=== PATIENT | female | born 1990 | race Caucasian/White ===

== ENCOUNTER → 2016-05-07 | Outpatient (CLI) | payer MEDICAID ==
[~2016-05-07] MED LIST: ACHD5005 PO; ALPR0.5T7 PO; AMOX500C2 PO; BSP10T PO; CATHETER FLUSH 10 ML SYR IV PRN; CYCL10TA9 PO; DCS100C PO; DEXT30TA12; DOCU100C37 PO; FAMO-119 PO; HYDR-3720 PO; HYDR-3816 PO; IBP800T PO; IBUP-1780 PO; IOHEXOL 350 MG/ML 100 ML (OMNIPAQUE 350) VIAL IV ONE; MAGN296S PO; NAPR-243 PO; NITR-65 PO; NS 100 ML (IVPB) BAG IV ONE; ONDA8TAB9 PO; OXYC-202 PO; OXYC-465 PO; POLY119P PO; PRD20T PO; PRED20TA PO; PREN1TAB19 PO; TRM50T PO; blue goo TOP
--- OUTSIDE RECORDS SUMMARY | 2016-05-07 12:06 | XMS REPORT | Continuity of Care Document ---
Author Author [facility] Organization [facility] Address Unknown Phone Unavailable Care Team Providers Care Chef Instructor Name Role Phone JEANETTE GARCIA MD PCP Insurance Providers Payer Name Policy Number Subscriber Name Relationship [employer] [facility] Emp [id number] Clau Farmer 18 Self / Same As Patient [facility] [id number] Clau Farmer 18 Self / Same As Patient Advance Directives Directive Response Recorded Date/Time Advance Directives No 07/25/14 3:42pm Health Care Power of Sales Outfitter No 07/25/14 3:42pm Organ Donor Yes 07/25/14 3:42pm Resuscitation Status Full Code 07/25/14 3:42pm Problems Medical Problems Problem Onset Date Status Dental abscess Unknown Active fractured tooth Unknown Active Chronic low back pain Unknown Active Abdominal pain Unknown Active Constipation Unknown Active Chronic low back pain Unknown Active Medications Medication Dose Route Sig Days/Qty Instructions Order Date Discontinued Date Status Buspirone HCl 1 Tab PO DAILY 90 Qty 11/24/12 03/17/13 Discontinued Tramadol HCl 50 Mg PO EVERY 4HRS 10 Qty 11/24/12 03/17/13 Discontinued Vit/Fe Fumarate/Fa 1 Each PO DAILY 03/17/13 Active Acetaminophen/Hydrocodone Bitart 1 Each PO EVERY 4HRS PRN PAIN 20 Qty 03/17/13 05/13/13 Discontinued Amoxicillin 2 Each PO THREE TIMES A DAY 10 Days 03/17/13 05/10/13 Discontinued Ondansetron HCl 8 Mg PO EVERY 6 HOURS PRN NAUSEA/VOMITING 10 Qty 05/10/13 Discontinued Docusate Sodium 1 Cap PO DAILY PRN CONSTIPATION 60 Qty 05/13/13 Active Acetaminophen/Hydrocodone Bitart ([place]) 1-2 Tab PO Q3H PRN PAIN 60 Qty 05/13/13 Active Ibuprofen 1 Tab PO EVERY 6 HOURS PRN cramps 60 Qty 05/13/13 Active Polyethylene Glycol 17 Gm PO BEDTIME 1 Qty 07/25/14 Active Magnesium Citrate 296 Ml PO ONCE 1 Qty 07/25/14 Active Naproxen 1 Each PO BID PRN PRN PAIN 20 Qty 07/25/14 Active Cyclobenzaprine HCl (Flexeril) 1 Each PO EVERY 8HRS PRN SPASMS 6 Qty Active Prednisone 40 Mg PO DAILY 10 Qty 07/25/14 Active Social History Social History Problem Response Recorded Date/Time Alcohol Use Rarely Uses 07/25/2014 3:42pm Recreational Drug Use No 07/25/2014 3:42pm Recent Foreign Travel No 07/25/2014 3:35pm Recent Infectious Disease Exposure No 07/25/2014 3:35pm Sexually Transmitted Disease No 07/25/2014 3:42pm Smoking Status Never a Smoker 07/25/2014 3:42pm Query Response Start Date Stop Date Smoking Status Never a Smoker Hospital Discharge Instructions No hospital discharge instructions. Plan of Care No plan of care. Functional Status No functional status results. Allergies, Adverse Reactions, Alerts Allergen Type Severity Reaction Status Last Updated No Known Drug Allergies Active 09/19/11 Immunizations Name Given Type Date of Influenza Vaccine 01/12/14 Historical Tetanus Booster (TDap) More than 5yrs Historical Vital Signs Acute Vital Signs Vital Response Date/Time Temperature (Fahrenheit) 97.2 degrees F (97.6 - 99.5) Temperature (Calculated Celsius) 36.00242 degrees C (36.4 - 37.5) Temperature Source Temporal Pulse Rate (adult) 89 bpm (60 - 90) Respiratory Rate 20 bpm (12 - 24) O2 Sat by Pulse Oximetry 98 % (88 - 100) Blood Pressure 134/88 mm Hg Pain Pain Intensity 6 Pain Pain Intensity 6 Height (Feet) 5 feet Height (Inches) 0.00 inches Height (Calculated Centimeters) 152.178847 cm Weight (Pounds) 110 pounds Weight (Ounces) 0.0 oz Weight (Calculated Grams) 69870.149 gm Weight (Calculated Kilograms) 49.771850 kilograms Calculated BMI 21.09 Results Laboratory Results Test Name Result Units Flags Reference Collection Date/Time Result Date/ Time Comments White Blood Count 10.2 10^3/uL 4.3-11.0 07/25/2014 4:40pm 07/25/2014 4: 52pm Red Blood Count 5.18 10^6/uL 4.35-5.85 07/25/2014 4:40pm 07/25/2014 4: 52pm Hemoglobin 14.4 G/DL 11.5-16.0 07/25/2014 4:40pm 07/25/2014 4:52pm Hematocrit 43 % 35-52 07/25/2014 4:40pm 07/25/2014 4:52pm Mean Corpuscular Volume 84 FL 80-99 07/25/2014 4:40pm 07/25/2014 4: 52pm Mean Corpuscular Hemoglobin 28 PG 25-34 07/25/2014 4:40pm 07/25/2014 4: 52pm Mean Corpuscular Hemoglobin Concent 33 G/DL 32-36 07/25/2014 4:40pm 4:52pm Red Cell Distribution Width 13.5 % 10.0-14.5 07/25/2014 4:40pm 2014 4:52pm Platelet Count 279 10^3/uL 130-400 07/25/2014 4:40pm 07/25/2014 4:52pm Mean Platelet Volume 9.5 FL 7.4-10.4 07/25/2014 4:40pm 07/25/2014 4: 52pm Neutrophils (%) (Auto) 68 % 42-75 07/25/2014 4:40pm 07/25/2014 4:52pm Lymphocytes (%) (Auto) 24 % 12-44 07/25/2014 4:40pm 07/25/2014 4:52pm Monocytes (%) (Auto) 5 % 0-12 07/25/2014 4:40pm 07/25/2014 4:52pm Eosinophils (%) (Auto) 3 % 0-10 07/25/2014 4:40pm 07/25/2014 4:52pm Basophils (%) (Auto) 0 % 0-10 07/25/2014 4:40pm 07/25/2014 4:52pm Neutrophils # (Auto) 6.9 X 10^3 1.8-7.8 07/25/2014 4:40pm 07/25/2014 4: 52pm Lymphocytes # (Auto) 2.4 X 10^3 1.0-4.0 07/25/2014 4:40pm 07/25/2014 4: 52pm Monocytes # (Auto) 0.6 X 10^3 0.0-1.0 07/25/2014 4:40pm 07/25/2014 4: 52pm Eosinophils # (Auto) 0.3 10^3/uL 0.0-0.3 07/25/2014 4:40pm 07/25/2014 4 :52pm Basophils # (Auto) 0.0 10^3/uL 0.0-0.1 07/25/2014 4:40pm 07/25/2014 4: 52pm Prothrombin Time 12.2 SEC 12.2-14.7 07/25/2014 4:40pm 07/25/2014 5: 04pm INR Comment 0.9 0.8-1.4 07/25/2014 4:40pm 07/25/2014 5:04pm INTERPRETIVE DATA SUGGESTED THERAPEUTIC RANGE FOR INR'S: VENOUS THROMBOSIS, PULMONARY EMBOLISM, OR PREVENTION OF SYSTEMIC EMBOLISM (EG. IN ATRIAL FIBRILLATION): 2.0 - 3.0 MECHANICAL PROSTHETIC HEART VALVES: 2.5 - 3.5* *NOTE: INR'S UP TO 4.5 MAY BE NECESSARY IN SELECTED GROUPS OF HIGH RISK PATIENTS. SIXTH [place] COLLEGE OF CHEST PHYSICIANS CONSENSUS CONFERENCE ON ANTITHROMBOTIC THERAPY (2000). Activated Partial Thromboplast Time 25 SEC 24-35 07/25/2014 4:40pm 5:04pm Urine Color YELLOW 07/25/2014 4:18pm 07/25/2014 4:41pm Urine Clarity CLEAR 07/25/2014 4:18pm 07/25/2014 4:41pm Urine pH 7 5-9 07/25/2014 4:18pm 07/25/2014 4:41pm Urine Specific [place] 1.010 * 1.016-1.022 07/25/2014 4:18pm 2014 4:41pm Urine Protein NEGATIVE NEGATIVE 07/25/2014 4:18pm 07/25/2014 4:41pm Urine Glucose (UA) NEGATIVE NEGATIVE 07/25/2014 4:18pm 07/25/2014 4: 41pm Urine RBC (Auto) NEGATIVE NEGATIVE 07/25/2014 4:18pm 07/25/2014 4: 41pm Urine Ketones NEGATIVE NEGATIVE 07/25/2014 4:18pm 07/25/2014 4:41pm Urine Nitrite NEGATIVE NEGATIVE 07/25/2014 4:18pm 07/25/2014 4:41pm Urine Bilirubin NEGATIVE NEGATIVE 07/25/2014 4:18pm 07/25/2014 4: 41pm Urine Urobilinogen NORMAL MG/DL NORMAL 07/25/2014 4:18pm 07/25/2014 4: 41pm Urine Leukocyte Esterase NEGATIVE NEGATIVE 07/25/2014 4:18pm 2014 4:41pm Urine RBC 0-2 /HPF 07/25/2014 4:18pm 07/25/2014 4:41pm Urine WBC RARE /HPF 07/25/2014 4:18pm 07/25/2014 4:41pm Urine Bacteria NEGATIVE /HPF 07/25/2014 4:18pm 07/25/2014 4:41pm Urine Squamous Epithelial Cells 0-2 /HPF 07/25/2014 4:18pm 2014 4:41pm Urine Crystals NONE /LPF 07/25/2014 4:18pm 07/25/2014 4:41pm Urine Casts NONE /LPF 07/25/2014 4:18pm 07/25/2014 4:41pm Urine Mucus NEGATIVE /LPF 07/25/2014 4:18pm 07/25/2014 4:41pm Urine Culture Indicated NO 07/25/2014 4:18pm 07/25/2014 4:41pm Sodium Level 140 MMOL/L 135-145 07/25/2014 4:40pm 07/25/2014 5:20pm Potassium Level 4.1 MMOL/L 3.6-5.0 07/25/2014 4:40pm 07/25/2014 5:20pm Chloride Level 106 MMOL/L 98-107 07/25/2014 4:40pm 07/25/2014 5:20pm Carbon Dioxide Level 25 MMOL/L 21-32 07/25/2014 4:40pm 07/25/2014 5: 20pm Blood Urea Nitrogen 10 MG/DL 7-18 07/25/2014 4:40pm 07/25/2014 5:20pm Creatinine 0.74 MG/DL 0.60-1.30 07/25/2014 4:40pm 07/25/2014 5:20pm BUN/Creatinine Ratio 14 07/25/2014 4:40pm 07/25/2014 5:20pm Estimat Glomerular Filtration Rate > 60 07/25/2014 4:40pm 2014 5:20pm GFR INTERPRETIVE DATA UNITS FOR ESTIMATED GFR (eGFR): mL/min/1.73 M2 REFERENCE RANGE FOR ESTIMATED GFR (eGFR) eGFR NORMAL eGFR >60 MODERATELY DECREASED eGFR 30-59 SEVERLY DECREASED eGFR 15-29 KIDNEY FAILURE <15 (OR DIALYSIS) Glucose Level 87 MG/DL 70-105 07/25/2014 4:40pm 07/25/2014 5:20pm Calcium Level 9.7 MG/DL 8.5-10.1 07/25/2014 4:40pm 07/25/2014 5:20pm Total Bilirubin 0.3 MG/DL 0.1-1.0 07/25/2014 4:40pm 07/25/2014 5:20pm Alkaline Phosphatase 62 U/L 40-136 07/25/2014 4:40pm 07/25/2014 5:20pm Aspartate Amino Transf (AST/SGOT) 23 U/L 5-34 07/25/2014 4:40pm 2014 5:20pm Alanine Aminotransferase (ALT/SGPT) 9 U/L 0-55 07/25/2014 4:40pm 2014 5:20pm Total Protein 8.2 G/DL 6.4-8.2 07/25/2014 4:40pm 07/25/2014 5:20pm Albumin 4.5 G/DL 3.2-4.5 07/25/2014 4:40pm 07/25/2014 5:20pm Procedures No known history of procedures. Encounters Encounter Location Date/Time Departed Emergency Room Via [facility] 07/25/14 3:19pm Recent Diagnosis
--- NOTE | 2016-05-07 14:37 | Diagnostic Imaging Report ---
Pelvic ultrasound. INDICATION: Pelvic pain. FINDINGS: There are no recent pelvic ultrasound examinations available for comparison. The OB ultrasound exam of 05/10/2015 did note a single live fetus. On this exam, the uterus is nongravid and not enlarged measuring 7.2 x 4.6 x 3.4 cm. The endometrial lining is not thickened measuring 4 mm; however, there is a small collection of fluid in the apex of the endometrium in the uterine fundus. This fluid collection is of uncertain etiology. This does not have the typical configuration of a gestational sac. Even so, I would recommend that correlation with the patient's beta-hCG levels be performed for further study. There is no focal mass involving the uterus to suggest a fibroid. Both ovaries are identified. Each ovary contains a few subcentimeter follicles. There is no solid pelvic mass or free fluid collection identified. IMPRESSION: 1. There is a small collection of fluid within the endometrium. This is unlikely to represent a gestational sac but correlation with the patient's beta-hCG levels will be recommended. 2. There is no acute pelvic abnormality noted otherwise. Dictated by: Dictated on workstation # [id number]
== END ==
LOC: RAD 12:02
PROVIDERS: ATTEND Family Medicine
DX: R10.2 Pelvic and perineal pain (principal)
CPT/HCPCS: 76830; 76856

== ENCOUNTER 2016-06-25 09:55 | Outpatient (CLI) | payer MEDICAID ==
[~2016-06-25] VITALS: Ht 152.4 cm; Wt 57.4 kg
[~2016-06-25 09:55] MED LIST changes: -CATHETER FLUSH 10 ML SYR IV PRN; -IOHEXOL 350 MG/ML 100 ML (OMNIPAQUE 350) VIAL IV ONE; -NS 100 ML (IVPB) BAG IV ONE; -OXYC-202 PO
--- OUTSIDE RECORDS SUMMARY | 2016-06-25 09:59 | XMS REPORT | Continuity of Care Document ---
Author Author [facility] Organization [facility] Address Unknown Phone Unavailable Care Team Providers Care Sr. Manager Corporate Communications Name Role Phone JEANETTE GARCIA MD PCP Insurance Providers Payer Name Policy Number Subscriber Name Relationship [employer] [facility] Emp [id number] Clau Farmer 18 Self / Same As Patient [facility] [id number] Clau Farmer 18 Self / Same As Patient Advance Directives Directive Response Recorded Date/Time Advance Directives No 07/25/14 3:42pm Health Care Power of Ramp Jockey No 07/25/14 3:42pm Organ Donor Yes 07/25/14 [...] CONSTIPATION 60 Qty 05/13/13 Active Acetaminophen/Hydrocodone Bitart ([place]) 1-2 Tab PO Q3H PRN PAIN 60 [...] F (97.6 - 99.5) Temperature (Calculated Celsius) 36.77596 degrees C (36.4 - 37.5) Temperature Source Temporal Pulse Rate (adult) 89 bpm (60 - 90) Respiratory Rate 20 bpm (12 - 24) O2 Sat by Pulse Oximetry 98 % (88 - 100) Blood Pressure 134/88 mm Hg Pain Pain Intensity 6 Pain Pain Intensity 6 Height (Feet) 5 feet Height (Inches) 0.00 inches Height (Calculated Centimeters) 152.344199 cm Weight (Pounds) 110 pounds Weight (Ounces) 0.0 oz Weight (Calculated Grams) 61000.149 gm Weight (Calculated Kilograms) 49.425825 kilograms Calculated BMI 21.09 Results Laboratory Results [...] SELECTED GROUPS OF HIGH RISK PATIENTS. [employer]IX[employer] [place] [employer] OF CHEST PHYSICIANS CONSENSUS CONFERENCE ON ANTITHROMBOTIC THERAPY (2000). Activated Partial Thromboplast Time 25 SEC 24-35 07/25/2014 4:40pm 5:04pm Urine Color YELLOW 07/25/2014 4:18pm 07/25/2014 4:41pm Urine Clarity CLEAR 07/25/2014 4:18pm 07/25/2014 4:41pm Urine pH 7 5-9 07/25/2014 4:18pm 07/25/2014 4:41pm Urine Specific [place] 1.010 * 1.016-1.022 07/25/2014 4:18pm 2014 4:41pm [...] Encounter Location Date/Time Departed Emergency Room Via [facility] 07/25/14 3:19pm Recent Diagnosis
[2016-06-25 10:04] VITALS: BP 135/84
[2016-06-25 10:28] LABS: BASOPHILS % (AUTO) 1 % (0-10); EOSINOPHILS # (AUTO) 0.1 10^3/uL (0.0-0.3); EOSINOPHILS % (AUTO) 1 % (0-10); LYMPHOCYTES # (AUTO) 1.6 X 10^3 (1.0-4.0); LYMPHOCYTES % (AUTO) 19 % (12-44); MEAN CORPUSCULAR HEMOGLOBIN 28 PG (25-34); MEAN CORPUSCULAR HGB CONC 33 G/DL (32-36); MEAN CORPUSCULAR VOLUME 85 FL (80-99); MEAN PLATELET VOLUME 9.5 FL (7.4-10.4); MONOCYTES # (AUTO) 0.6 X 10^3 (0.0-1.0); MONOCYTES % (AUTO) 7 % (0-12); NEUTROPHILS % (AUTO) 72 % (42-75); PLATELET COUNT 234 10^3/uL (130-400); RED BLOOD COUNT 5.05 10^6/uL (4.35-5.85); RED CELL DISTRIBUTION WIDTH 13.9 % (10.0-14.5); WHITE BLOOD COUNT 8.3 10^3/uL (4.3-11.0)
== END 2016-06-25 10:17 | disposition home or self-care (01) ==
LOC: PREOP 09:55
PROVIDERS: ATTEND Obstetrics & Gynecology
DX: Z01.812 Encounter for preprocedural laboratory examination (principal); Z11.2 Encounter for screening for other bacterial diseases; N80.9 Endometriosis, unspecified; N93.8 Other specified abnormal uterine and vaginal bleeding; D64.9 Anemia, unspecified
CPT/HCPCS: 36415; 85025; 86850; 86900; 86901; 87081

== ENCOUNTER 2016-06-28 10:36 | Day surgery (SDC) | payer MEDICAID ==
[~2016-06-28] VITALS: Ht 152.4 cm; Wt 57.4 kg
--- OUTSIDE RECORDS SUMMARY | 2016-06-28 10:40 | XMS REPORT | Continuity of Care Document ---
Author Author [facility] Organization [facility] Address Unknown Phone Unavailable Care Team Providers Care Colloid Mill Operator Name Role Phone JEANETTE GARCIA MD PCP Insurance Providers Payer Name Policy Number Subscriber Name Relationship [employer] [facility] Emp [id number] Clau Farmer 18 Self / Same As Patient [facility] [id number] Clau Farmer 18 Self / Same As Patient Advance Directives Directive Response Recorded Date/Time Advance Directives No 07/25/14 3:42pm Health Care Power of Violin Tutor No 07/25/14 3:42pm Organ Donor Yes 07/25/14 [...] CONSTIPATION 60 Qty 05/13/13 Active Acetaminophen/Hydrocodone Bitart ([place]) 1-2 Tab PO Q3H PRN PAIN 60 [...] F (97.6 - 99.5) Temperature (Calculated Celsius) 36.60365 degrees C (36.4 - 37.5) Temperature Source Temporal Pulse Rate (adult) 89 bpm (60 - 90) Respiratory Rate 20 bpm (12 - 24) O2 Sat by Pulse Oximetry 98 % (88 - 100) Blood Pressure 134/88 mm Hg Pain Pain Intensity 6 Pain Pain Intensity 6 Height (Feet) 5 feet Height (Inches) 0.00 inches Height (Calculated Centimeters) 152.539231 cm Weight (Pounds) 110 pounds Weight (Ounces) 0.0 oz Weight (Calculated Grams) 71089.149 gm Weight (Calculated Kilograms) 49.059326 kilograms Calculated BMI 21.09 Results Laboratory Results [...] SELECTED GROUPS OF HIGH RISK PATIENTS. SIX[employer] [place] [employer] OF CHEST PHYSICIANS CONSENSUS CONFERENCE ON ANTITHROMBOTIC THERAPY (2000). Activated Partial Thromboplast Time 25 SEC 24-35 07/25/2014 4:40pm 5:04pm Urine Color YELLOW 07/25/2014 4:18pm 07/25/2014 4:41pm Urine Clarity CLEAR 07/25/2014 4:18pm 07/25/2014 4:41pm Urine pH 7 5-9 07/25/2014 4:18pm 07/25/2014 4:41pm Urine Specific [place] 1.010 * 1.016-1.022 07/25/2014 4:18pm 2014 4:41pm [...] Date/Time Departed Emergency Room Via [facility] 07/25/14 3:19pm Recent Diagnosis
--- OUTSIDE RECORDS SUMMARY | 2016-06-28 10:41 | XMS REPORT | Continuity of Care Document ---
Author Author [facility] Organization [facility] Address Unknown Phone Unavailable Care Team Providers Care Dish Maker Name Role Phone JEANETTE GARCIA MD PCP Insurance Providers Payer Name Policy Number Subscriber Name Relationship [employer] [facility] Emp [id number] Clau Farmer 18 Self / Same As Patient [facility] [id number] Clau Farmer 18 Self / Same As Patient Advance Directives Directive Response Recorded Date/Time Advance Directives No 07/25/14 3:42pm Health Care Power of Trade Facilitator No 07/25/14 3:42pm Organ Donor Yes 07/25/14 [...] CONSTIPATION 60 Qty 05/13/13 Active Acetaminophen/Hydrocodone Bitart ([place]) 1-2 Tab PO Q3H PRN PAIN 60 [...] F (97.6 - 99.5) Temperature (Calculated Celsius) 36.01937 degrees C (36.4 - 37.5) Temperature Source Temporal Pulse Rate (adult) 89 bpm (60 - 90) Respiratory Rate 20 bpm (12 - 24) O2 Sat by Pulse Oximetry 98 % (88 - 100) Blood Pressure 134/88 mm Hg Pain Pain Intensity 6 Pain Pain Intensity 6 Height (Feet) 5 feet Height (Inches) 0.00 inches Height (Calculated Centimeters) 152.757638 cm Weight (Pounds) 110 pounds Weight (Ounces) 0.0 oz Weight (Calculated Grams) 26089.149 gm Weight (Calculated Kilograms) 49.585210 kilograms Calculated BMI 21.09 Results Laboratory Results [...] SELECTED GROUPS OF HIGH RISK PATIENTS. [employer]IX[employer] [place] [employer]ST PH[employer]IANS CONSENSUS CONFERENCE ON ANTITHROMBOTIC THERAPY (2000). Activated Partial Thromboplast Time 25 SEC 24-35 07/25/2014 4:40pm 5:04pm Urine Color YELLOW 07/25/2014 4:18pm 07/25/2014 4:41pm Urine Clarity CLEAR 07/25/2014 4:18pm 07/25/2014 4:41pm Urine pH 7 5-9 07/25/2014 4:18pm 07/25/2014 4:41pm Urine Specific [place] 1.010 * 1.016-1.022 07/25/2014 4:18pm 2014 4:41pm [...] Encounter Location Date/Time Departed Emergency Room Via [facility] 07/25/14 3:19pm Recent Diagnosis
[2016-06-28] MEDS: LACTATED RINGERS 1,000 ML IV PRN ×2 (10:45→13:02)
[2016-06-28] MEDS ORDERED: ceFAZolin 1 GM/NS 50 ML IVPB IV ONE ×2 (11:00)
[2016-06-28] MEDS ORDERED: MIDAZOLAM 2 MG/2 ML (VERSED) VIAL IV ONE (11:15)
[2016-06-28 11:23] VITALS: BP 116/69
[2016-06-28] MEDS ORDERED: ROCURONIUM 50 MG/5 ML (ZEMURON) VIAL IV ONE (11:44)
[2016-06-28] MEDS ORDERED: proPOfol 200 MG/20 ML (DIPRIVAN) VIAL IV ONE (11:44)
[2016-06-28] MEDS ORDERED: fentaNYL INJECTION 250 MCG/5 ML AMP ONE (11:44)
[2016-06-28] MEDS ORDERED: DEXAMETHASONE PF 10 MG/ML (DECADRON) VIAL ONE (11:44)
[2016-06-28] MEDS ORDERED: LACTATED RINGERS 1,000 ML IV ONE ×2 (11:44→13:26)
[2016-06-28] MEDS ORDERED: ONDANSETRON 4 MG/2 ML (SDV) Z0FRAN ONE (11:44)
[2016-06-28] MEDS ORDERED: SEVOFLURANE (ULTANE) 15 ML INHAL SOLN ONE ×2 (11:44→13:31)
[2016-06-28] MEDS ORDERED: LIDOCAINE PF 2% 10 ML (XYLOCAINE) AMP ONE (11:44)
[2016-06-28] MEDS ORDERED: MIDAZOLAM 2 MG/2 ML (VERSED) VIAL ONE (11:45)
[2016-06-28] MEDS ORDERED: OXYC-202 PO (11:49)
--- NOTE | 2016-06-28 11:51 | Progress Note-Pre Operative ---
Pre-Operative Progress Note H&P Reviewed The H&P was reviewed, patient examined and no changes noted. Date H&P Reviewed: Jun 28, 2016 Time H&P Reviewed: 11:51 Pre-Operative Diagnosis: chronic pelvic pain discharge and uterine bleeding endometriosis OLIVE PARKER MD Jun 28, 2016 11:51 am
[2016-06-28] MEDS ORDERED: ALPRAZolam 0.5 MG (XANAX) TAB PO PRN (12:00)
[2016-06-28] MEDS ORDERED: PROMETHAZINE INJ 25 MG/ML (PHENERGAN) AMP IM PRN (12:00)
[2016-06-28] MEDS ORDERED: WATER (STERILE) FOR INJ 10 ML BTL INJ ONE (12:00)
[2016-06-28] MEDS ORDERED: MEPERIDINE (DEMEROL) INJ 100 MG/ML IM PRN (12:00)
[2016-06-28] MEDS ORDERED: ONDANSETRON 4 MG/2 ML (SDV) Z0FRAN IVP PRN (12:00)
[2016-06-28] MEDS ORDERED: BUP/EPI 0.25% 1:200,000 (MARCAINE) 30 ML VIAL ONE (12:05)
[2016-06-28] MEDS ORDERED: morphine INJ 10 MG/ML 1ML (SYR OR VIAL) ONE (12:59)
[2016-06-28] MEDS ORDERED: ESTROGENS CONJ IV 25 MG/5 ML (PREMARIN) VIAL ONE (12:59)
[2016-06-28] MEDS ORDERED: NEOSTIGMINE (BLOXIVERZ ) 1 MG/1ML 10 ML VIAL ONE (13:26)
[2016-06-28] MEDS ORDERED: GLYCOPYRROLATE 0.2 MG/ML (ROBINUL) 2 ML VIAL ONE (13:26)
[2016-06-28] MEDS ORDERED: BUP/EPI 0.25% 1:200,000 (MARCAINE) 30 ML VIAL INJ ONE (13:30)
[2016-06-28] MEDS ORDERED: MEPERIDINE (DEMEROL) INJ 50 MG/ML IVP PRN (13:45)
[2016-06-28] MEDS: morphine INJ 10 MG/ML 1ML (SYR OR VIAL) IVP PRN ×2 (13:55→14:00)
[2016-06-28] MEDS: KETOROLAC 30 MG/ML VIAL IVP SCH ×2 (14:07→19:33)
[2016-06-28 15:04] VITALS: BP 140/88
[2016-06-28] MEDS: D5 LR IV SOLUTION 1,000 ML IV SCH ×2 (15:05→22:13)
[2016-06-28] MEDS ORDERED: FLU TRIvalent (5 YOA+) 2016-17 (AFLURIA) 0.5 ML IM ONE (16:30)
[2016-06-28 17:54] VITALS: BP 136/83
[2016-06-28] MEDS: oxyCODONE/APAP 10/325MG (PERCOCET 10) TABLET PO PRN ×2 (18:07→21:35)
[2016-06-28 19:30] VITALS: BP 126/72
--- NOTE | 2016-06-28 20:16 | OPERATIVE REPORT ---
PROCEDURE PHYSICIAN: OLIVE PARKER DATE OF PROCEDURE: 06/28/2016 PREOPERATIVE DIAGNOSIS: 1. Dysfunctional uterine bleeding. 2. Menorrhagia. 3. Chronic pelvic pain. 4. Endometriosis. POSTOPERATIVE DIAGNOSES: 1. Dysfunctional uterine bleeding. 2. Menorrhagia. 3. Chronic pelvic pain. 4. Endometriosis. OPERATIVE PROCEDURE: Total laparoscopic hysterectomy with bilateral salpingectomy with left oophorectomy. OPERATIVE PROCEDURE: Adhesiolysis. OPERATIVE DESCRIPTION: With the patient in supine position, under satisfactory general anesthesia, she was repositioned in the dorsal lithotomy position in the [facility] and prepped and draped in the usual fashion for abdominal and vaginal surgery. The urinary bladder was drained via Bundy catheter to dependent drainage. A weighted speculum was placed in posterior fornix of the vagina. Cervix exposed and grasped anteriorly with single-tooth tenaculum. The uterus was sounded to 9 cm of uterine sound. The cervix was then serially dilated with Fabricio dilators to accommodate a HUNG 2 manipulator, which was placed using a 6 mm x 8 cm uterine probe and a 30 mm colpotomy ring. Sutures of number 1 Vicryl were placed at the 3 and 9 o'clock position on the cervix to affix the uterine cervix to the manipulator. The patient brought in the low dorsal lithotomy position. A 12 mm incision was made just superior to the umbilicus. Veress needle was placed through that incision into the abdominal cavity and correct placement confirmed with the water drop test. The abdomen was insufflated with 2.4 liters of carbon dioxide then the Veress needle was removed. A 12 mm Optiview laparoscopic port placed and the abdominal wall transilluminated, ports of 8 mm were placed 9 cm lateral to the umbilicus through incisions of those sizes. All 3 port sites were infiltrated with 0.25% Marcaine with epinephrine prior to incision. The patient placed in Trendelenburg, allowing the bowel was spilled up out of the pelvis. The da Carol column was advanced onto the patient and docked. Operative instruments were placed in right and left lateral ports and I retired to the di Carol console. At the console, using a vessel sealer on the right and bipolar fenestrated grasper on the left, the pelvis was first examined finding adhesions of the sigmoid colon to the left pelvic rim and lateral to the ovary. These were taken down very carefully. Most of this was filmy adhesions distant from the bowel. Those were freed to allow access to the IP ligament. Both ureters were seen to peristaltic before, during, and after the entire procedure. The left ovary had evidence of endometriosis. Bilaterally the fallopian tubes had evidence of remote tubal sterilization. The right fallopian tube was somewhat clubbed on its distal end. The right ovary appeared relatively normal. The decision was made to go ahead with the intended procedure being hysterectomy with left salpingo-oophorectomy and right salpingectomy. The appendix had been identified and examined as the patient was placed in Trendelenburg and the bowel was spilling out of pelvis. The appendix had that appeared normal. Using the vessel sealer, the right fallopian tube was grasped and elevated. The vessel sealer was used to clamp the mesosalpinx, cauterized and divided and that was continued over to the utero-ovarian pedicle, which was treated in the same manner with the vessel sealer then the round ligament, the broad ligaments, and the cardinal ligament were treated in the same manner. The left side of the mesovarium was clamped starting across the IP ligament and then the left adnexa was from its attachments with the vessel sealer in the same manner as the right allowing for removal of both the left tube and ovary and the right fallopian tube, eventually with the uterus. The anterior lower uterine segment peritoneum was now divided using the monopolar shear through the right lateral port. The bladder was carefully dissected down off the lower uterine segment and off of the cervix, exposing the vaginal wall at the cervix. The colpotomy incision then made at the 12 o'clock position, continued circumferentially to the 2 o'clock position then counterclockwise circumferentially until the entire colpotomy ring was exposed. The cervix, corpus cervix uteri with the tubes and the left ovary still attached was removed through the vagina. The vaginal cuff was then closed with 2 sutures of V-LOC barbed suture, starting from the right angle and continuing to the midportion and from the left angle to the midportion with a second suture insuring and closure of the uterine vessels with the angle-closure. The peritoneum was brought back down on the vaginal cuff with a final 2 stitches on each suture. The pelvis was now irrigated and examined for hemostasis. Additional implants of endometriosis had been destroyed using the monopolar shear. With no visible abnormal pathology, the right ovary intact and in situ and no bleeding, the procedure was terminated. The operative instruments were removed under direct vision as was the ports. The abdomen was evacuated of its insufflating gas in the process of removing the port. There was no bleeding from the port sites. The port site incisions in the skin were closed with luna. The fascia at the umbilical incision was closed with [id number] suture of 2-0 Vicryl. The speculum was replaced in the vagina. The vaginal cuff examined was found intact and completely hemostatic. Sponge and needle counts were correct at the end of the procedure. Estimated blood loss for procedure was minimal. The patient tolerated the procedure well, and was uneventfully awakened from her general anesthesia and transferred to recovery room in stable condition. Job ID: [id number] Dictated Date: 06/28/2016 13:34:43 Machine Cage Maker Date: 06/28/2016 19:55:25 / alexx
[2016-06-29 00:05] VITALS: BP 94/55
[2016-06-29] MEDS: KETOROLAC 30 MG/ML VIAL IVP SCH (02:07)
[2016-06-29] MEDS: oxyCODONE/APAP 10/325MG (PERCOCET 10) TABLET PO PRN ×3 (02:09→11:44)
[2016-06-29 04:00] VITALS: BP 94/51
--- NOTE | 2016-06-29 08:06 | Progress Note-Standard ---
Standard Progress Note Progress Notes/Assess & Plan Progress/Assessment & Plan this patient is without complaint. She is ambulating, voiding, tolerating by mouth well, has good pain control. Patient denies chest pain, denies shortness of breath, denies nausea vomiting, denies headache. Vital Signs Date Time Temp Pulse Resp B/P Pulse Ox O2 Delivery O2 Flow Rate FiO2 06/29/16 04:00 98.4 77 16 94/51 97 Room Air 06/29/16 00:05 99.5 73 16 94/55 95 Room Air 06/28/16 19:30 97.4 73 16 126/72 100 Room Air 06/28/16 17:54 97.1 103 16 136/83 100 Room Air 06/28/16 16:00 78 14 95 Room Air 06/28/16 15:04 97.1 70 16 140/88 100 Room Air 06/28/16 14:07 97.4 06/28/16 14:00 97.4 06/28/16 13:55 97.4 06/28/16 11:23 99.3 78 18 116/69 97 Room Air I & O 06/29/16 07:00 Intake Total 1350 ml Output Total 360 ml Balance 990 ml vital signs are stable. Patient is afebrile. Abdomen is benign. Extremities show clubbing cyanosis. There is no Homans sign. Assessment and plan postoperative day number 1 doing well. Plan is for discharge home with follow-up in clinic. Final Diagnosis dysfunction uterine bleeding/chronic pelvic pain/endometriosis OLIVE PARKER MD Jun 29, 2016 8:06 am
[2016-06-29] MEDS ORDERED: OXYC-465 PO (08:09)
[2016-06-29] MEDS ORDERED: DOCU100C37 PO (08:09)
[2016-06-29] MEDS ORDERED: IBUP-1780 PO (08:09)
--- NOTE | 2016-06-29 08:10 | Discharge Instructions ---
Discharge Instructions Discharge Medications New, Converted or Re-Newed RX: RX on Chart Patient Instructions Patient Instructions: as directed Return to [facility] For: as directed Activity & Diet Discharge Diet: No Restrictions Activity as Tolerated: No Orders-Post D/C & Referrals Follow Up Appt: return to clinic on Friday, July 03, 2016 for staple removal Call to make follow up appt. for patient in 4 weeks. Activity: Rest for 24 hours, than as tolerated. Wound Care: May remove Band-Aid tomorrow. Replace as desired. Keep incisions clean and dry. Wash daily with soap and water. Please call in RX to patient pharmacy. Diet: As tolerated-Clear Liquids only if nauseated. Tomorrow, may shower or tub bathe as desired. No driving for 24 hours, no alcoholic beverages for 24 hours, and nothing per vagina (no tampons, douching, or intercourse) for 8 weeks. Patient to return to the clinic as soon as possible for: Temperature greater than 101F, Severe Pain, Foul discharge from incision or vagina, Excessive Bleeding (more than a period). OLIVE PARKER MD Jun 29, 2016 8:10 am
[2016-06-29] MEDS ORDERED: IBUPROFEN 800 MG (MOTRIN) TAB PO ONE (08:17)
[2016-06-29 09:00] VITALS: BP 104/53
[2016-06-29] MEDS ORDERED: DOCUSATE SODIUM 100 MG (COLACE) CAP PO SCH (09:00)
--- NOTE | 2016-06-29 09:24 | Anesthesia-General Post-Op ---
General Patient Condition Mental Status/LOC: Same as Preop Cardiovascular: Satisfactory Nausea/Vomiting: Absent Respiratory: Satisfactory Pain: Controlled Complications: Absent Post Op Complications Complications None Follow Up Care/Instructions Patient Instructions None needed. Anesthesia/Patient Condition Patient Condition Patient is doing well, no complaints, stable vital signs, no apparent adverse anesthesia problems. No complications reported per nursing. KEI BAPTISTE CRNA Jun 29, 2016 09:24
[2016-06-29 11:45] VITALS: BP 105/61
[2016-06-29] MEDS ORDERED: IBUPROFEN 800 MG (MOTRIN) TAB PO SCH (12:00)
[2016-06-29 12:30] VITALS: BP 105/61
== END 2016-06-29 12:30 | disposition home or self-care (01) ==
LOC: SDC 10:36 → WS 14:50 → SDC 06-29 12:30
PROVIDERS: ATTEND Obstetrics & Gynecology
DX: N93.8 Other specified abnormal uterine and vaginal bleeding (principal); N92.0 Excessive and frequent menstruation with regular cycle; N83.12 Corpus luteum cyst of left ovary
CPT/HCPCS: 84703; 88307; 94664; 96361; 96372; 96375; 96376

== ENCOUNTER 2016-11-26 18:23 | Emergency (ER) | payer MEDICAID ==
[~2016-11-26] VITALS: Ht 152.4 cm; Wt 57.4 kg
[~2016-11-26 18:23] MED LIST changes: +OXYC-202 PO
--- OUTSIDE RECORDS SUMMARY | 2016-11-26 18:29 | XMS REPORT ---
Author Author TIMOTHY MOSLEY [facility] eClinicalWorks Address Unknown Phone Unavailable Care Team Providers Care Developer Prover Mechanical Name Role Phone TIMOTHY MOSLEY CP Unavailable Allergies No Known Allergies Problems Problem Type Condition ICD-9 Code Onset Dates Condition Status Problem Other screening breast examination V76.19 Active Problem Attention deficit disorder of childhood with hyperactivity 314.01 Active Problem Screening for malignant neoplasm of the cervix V76.2 Active Assessment test positive V72.42 Active Problem Anxiety state, unspecified 300.00 Active Problem examination or test, positive result V72.42 Active Medications No Known Medications Procedures Procedure Coding System Code Date URINE TEST CPT-4 36182 Dec 05, 2014 Results No Known Results Summary Purpose eClinicalWorks Submission
[2016-11-26] MEDS ORDERED: NAPR500T3 PO (18:41)
[2016-11-26] MEDS ORDERED: LIDO15SO2 MM (18:41)
[2016-11-26] MEDS ORDERED: AMOX-358 PO (18:41)
--- NOTE | 2016-11-26 18:41 | ED EENT ---
History of Present Illness General Chief Complaint: Dental Problems/Pain Stated Complaint: DENTAL PAIN Source: patient History of Present Illness Time seen by provider: 18:30 Initial Comments C/O DENTAL PAIN X 1 WEEK HAS HAD PROBLEMS WITH THIS TOOTH IN THE PAST--STATES "IT CHIPPED AGAIN" NO FEVER NO SWELLING TO FACE STATES SHE HAS AN APPOINTMENT AT [facility] NEXT WEEK NO RELIEF WITH TYLENOL PCP: DR. GARCIA Allergies and Home Medications Allergies Coded Allergies: No Known Drug Allergies (Unverified , 09/19/11) Home Medications Alprazolam 0.5 Mg Tablet, 0.5 TAB PO TID PRN for ANXIETY, (Reported) Amoxicillin/Potassium Clav 1 Each Tablet, 1 EACH PO BID, #20 Prescribed by: HALLE NOBLE on 11/26/16 184 Docusate Sodium 100 Mg Capsule, 100 MG PO BID, #60 Prescribed by: OLIVE QUINTERO on 06/29/16 0809 Ibuprofen 800 Mg Tablet, 800 MG PO Q6HR, #60 Prescribed by: OLIVE QUINTERO on 06/29/16 0809 Lidocaine HCl 15 Ml Solution, 1-2 ML MM Q 1-2 HOURS, #100 Prescribed by: HALLE NOBLE on 11/26/16 1841 Naproxen 500 Mg Tablet, 500 MG PO BID, #20 Prescribed by: HALLE NOBLE on 11/26/16 1841 Oxycodone HCl/Acetaminophen 1 Each Tablet, 1-2 TAB PO Q4H PRN for PAIN, #60 Prescribed by: OLIVE QUINTERO on 06/29/16 0809 Review of Systems Constitutional: no symptoms reported Eyes: No Symptoms Reported Ears: No Symptoms Reported Nose: no symptoms reported Mouth: see HPI Throat: no symptoms reported Respiratory: no symptoms reported Cardiovascular: no symptoms reported : No (S/P HYST) Musculoskeletal: no symptoms reported Skin: no symptoms reported Neurological: No Symptoms Reported Past Nrktuii-Zqmcet-Ldbexf Hx Patient Social History Alcohol Use: Denies Use Recreational Drug Use: No Smoking Status: Never a Smoker Recent Foreign Travel: No Contact w/Someone Who Travel: No Recent Hopitalizations: No Immunizations Up To Date Tetanus Booster (TDap): Less than 5yrs Date of Influenza Vaccine: Jan 12, 2014 Seasonal Allergies Seasonal Allergies: Yes Surgeries HX Surgeries: Yes (WISDOM TEETH, TEAR DUCT, c/s x2; HYST) Surgeries: Section, Hysterectomy, Tubal Ligation Respiratory Hx Respiratory Disorders: No Cardiovascular Hx Cardiac Disorders: No Neurological Hx Neurological Disorders: No Reproductive System Hx Reproductive Disorders: Yes Sexually Transmitted Disease: No 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 Genitourinary Hx Genitourinary Disorders: No Gastrointestinal Hx Gastrointestinal Disorders: No Musculoskeletal Hx Musculoskeletal Disorders: No Endocrine Hx Endocrine Disorders: Yes (gestational diet controlled) HEENT HX ENT Disorders: Yes (DENTAL PROBLEMS) Cancer Hx Cancer: No Psychosocial Hx Psychiatric Problems: Yes Behavioral Health Disorders: ADD/ADHD, Anxiety Integumentary HX Skin/Integumentary Disorder: No Blood Transfusions Hx Blood Disorders: No Family Medical History Significant Family History: No Pertinent Family Hx Family Medial History: Arthritis 19 MOTHER Cardiovascular disease 19 FATHER 19 MOTHER Diabetes mellitus 19 FATHER 19 MOTHER Hypertension 19 FATHER 19 MOTHER Myocardial infarction 19 FATHER 19 MOTHER Thyroid disease 19 MOTHER G8 SISTER Physical Exam Vital Signs Vital Sign - Last 12Hours 11/26/16 18:31 Temp 98.1 Pulse 84 Resp 18 B/P (MAP) 136/88 Pulse Ox 98 O2 Delivery Room Air General Appearance: WD/WN, no apparent distress Eyes: bilateral eye EOMI, bilateral eye PERRL, bilateral eye normal inspection Ears: bilateral ear TM normal, bilateral ear auricle normal, bilateral ear canal normal Nose: normal inspection Mouth/Throat: No mandibular swelling, No maxillary swelling, No trismus, other (TENDERNESS TO TOOTH #10, WITH ADJACENT GUM-- MILD SWELLING, MODERATE TENDERNESS AND ERYTHEMA) Neck: non-tender, full range of motion, supple, normal inspection, No lymphadenopathy (R), No lymphadenopathy (L) Cardiovascular: regular rate, rhythm, no murmur Respiratory: chest non-tender, normal breath sounds, no respiratory distress, no accessory muscle use 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 Referrals: JEANETTE GARCIA MD (PCP/Family) Primary Care Physician Patient Instructions: Dental Pain (DC), Tooth Decay, Adult (DC), Tooth Abscess (DC) Add. Discharge Instructions: FREQUENT SALT WATER SWISHES KEEP YOUR APPOINTMENT WITH DENTIST NEXT WEEK All discharge instructions reviewed with patient and/or family. Voiced understanding. Scripts Naproxen (Naproxen) 500 Mg Tablet 500 MG PO BID, #20 TAB Prov: HALLE NOBLE DO 11/26/16 Lidocaine HCl (Lidocaine HCl Viscous) 15 Ml Solution 1-2 ML MM Q 1-2 HOURS for Pain, #100 EA Prov: HALLE NOBLE DO 11/26/16 Amoxicillin/Potassium Clav (Augmentin 875-125 Tablet) 1 Each Tablet 1 EACH PO BID for INFECTION, #20 TAB Prov: HALLE NOBLE DO 11/26/16 Images Mouth/Nose 1 - Caries, Swelling, Tenderness HALLE NOBLE DO Nov 26, 2016 18:41
[2016-11-26 18:52] VITALS: BP 120/71
== END 2016-11-26 18:52 | disposition home or self-care (01) ==
LOC: EDUNIT# 18:23 → ER 18:25
DX: K02.9 Dental caries, unspecified (principal); K05.10 Chronic gingivitis, plaque induced; F90.9 Attention-deficit hyperactivity disorder, unspecified type; F41.9 Anxiety disorder, unspecified; Z82.49 Family history of ischemic heart disease and other diseases of the circulatory system; Z87.59 Personal history of other complications of pregnancy, childbirth and the puerperium; Z90.710 Acquired absence of both cervix and uterus; Z98.51 Tubal ligation status
CPT/HCPCS: 99282

== ENCOUNTER → 2017-01-13 | Outpatient (CLI) | payer MEDICAID ==
[~2017-01-13] MED LIST changes: +AMOX-358 PO; +LIDO15SO2 MM; +NAPR500T3 PO
--- NOTE | 2017-01-13 20:26 | Diagnostic Imaging Report ---
Bilateral breast ultrasound. INDICATION: Left breast pain. History of hysterectomy six months ago. COMPARISON: No prior studies are available for comparison. FINDINGS: The four quadrants and retroareolar region of each breast is scanned with no underlying abnormality seen. IMPRESSION: Negative study. ACR BI-RADS Category 1: Negative. Dictated by: Dictated on workstation # [id number]
== END ==
LOC: RAD 13:40
PROVIDERS: ATTEND Family Medicine
DX: N64.4 Mastodynia (principal); Z90.710 Acquired absence of both cervix and uterus

== ENCOUNTER 2017-06-14 09:45 | Emergency (ER) | payer SELFPAY ==
[~2017-06-14] VITALS: Ht 152.4 cm; Wt 61.7 kg
[~2017-06-14 09:45] MED LIST changes: +HYDR-34 PO; -HYDR-3816 PO; +NAPR-915 PO; -NAPR500T3 PO
--- NOTE | 2017-06-14 10:10 | ED Lower Extremity ---
General Chief Complaint: Lower Extremity Stated Complaint: R FOOT TOE PAIN Nursing Triage Note: AMB TO ROOM REPORTS TRIPEED OVER TOOL BOX. C/O PAIN IN R FOOT. BRUISNG NOTED TO R 2ND TOE. Nursing Sepsis Screen: No Definite Risk Source: patient Exam Limitations: no limitations History of Present Illness Date Seen by Provider: Jun 14, 2017 Time Seen by Provider: 10:08 Initial Comments This 26-year-old white female presents after she sustained an injury to her right foot last night when she tripped over a toy toolbox. Patient had a forward flexion injury to the toes of her right foot. She is complaining of sharp pain that radiates to the ankle from the big through the little toe. She denies other injury or accident. She denies previous significant injury to the right foot. Allergies and Home Medications Allergies Coded Allergies: No Known Drug Allergies (Unverified , 09/19/11) Home Medications Alprazolam 0.5 Mg Tablet, 0.5 TAB PO TID PRN for ANXIETY, (Reported) Patient Home Medication List Home Medication List Reviewed: Yes Constitutional: No chills EENTM: No ear pain Respiratory: No cough Cardiovascular: No chest pain Gastrointestinal: No abdominal pain Genitourinary: no symptoms reported Musculoskeletal: see HPI, joint pain (toes of the right foot) Skin: change in color (patient has ecchymosis over several toes of the right foot.) Psychiatric/Neurological: Anxiety Past Jhoiszq-Xttzkq-Pvpwsf Hx Patient Social History Alcohol Use: Occasionally Uses Recreational Drug Use: No Recent Foreign Travel: No Contact w/Someone Who Travel: No Recent Infectious Disease Expo: No Recent Hopitalizations: No Immunizations Up To Date Tetanus Booster (TDap): Less than 5yrs Date of Influenza Vaccine: Jan 12, 2014 Seasonal Allergies Seasonal Allergies: Yes Surgeries History of Surgeries: Yes (WISDOM TEETH, TEAR DUCT, c/s x2) Surgeries: Section, Hysterectomy, Tubal Ligation Respiratory History of Respiratory Disorde: No Cardiovascular History of Cardiac Disorders: No Neurological History of Neurological Disord: No Reproductive System Hx Reproductive Disorders: Yes Sexually Transmitted Disease: No 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 Genitourinary History of Genitourinary Disor: No Gastrointestinal History of Gastrointestinal Di: No Musculoskeletal History of Musculoskeletal Dis: No Endocrine History of Endocrine Disorders: No (gestational diet controlled) HEENT History of HEENT Disorders: No Cancer History of Cancer: No Psychosocial History of Psychiatric Problem: Yes Behavioral Health Disorders: ADD/ADHD, Anxiety Integumentary History of Skin or Integumenta: No Blood Transfusions History of Blood Disorders: No Reviewed Nursing Assessment Reviewed/Agree w Nursing PMH: Yes Family Medical History Significant Family History: No Pertinent Family Hx Family Medial History: Arthritis 19 MOTHER Cardiovascular disease 19 FATHER 19 MOTHER Diabetes mellitus 19 FATHER 19 MOTHER Hypertension 19 FATHER 19 MOTHER Myocardial infarction 19 FATHER 19 MOTHER Thyroid disease 19 MOTHER G8 SISTER Physical Exam Vital Signs Vital Signs - First Documented 06/14/17 09:49 Temp 98.7 Pulse 100 Resp 18 B/P (MAP) 123/77 (92) Pulse Ox 98 O2 Delivery Room Air Capillary Refill : Less Than 3 Seconds General Appearance: WD/WN, mild distress HEENT: normal ENT inspection Neck: normal inspection Cardiovascular: regular rate, rhythm Respiratory: lungs clear Gastrointestinal: normal bowel sounds Back: normal inspection Neurologic/Tendon: normal sensation Neurologic/Psychiatric: no motor/sensory deficits, alert, normal mood/affect Skin: normal color, warm/dry, other (there is ecchymosis to the toes of the right foot.) Progress/Results/Core Measures Results/Orders My Orders Orders - PARAM BEAUCHAMP MD Foot, Right, 3 View (06/14/17 10:05) Hydrocodone/Apap 5/325 Tablet (Lortab 5 (06/14/17 10:15) Medications Given in ED Current Medications Medications Dose Ordered Sig/Abdi Route Start Time Stop Time Status Last Admin Dose Admin Acetaminophen/ Hydrocodone Bitart 2 tab ONCE ONCE PO 06/14/17 10:15 06/14/17 10:16 DC 06/14/17 10:20 2 TAB Vital Signs/I&O Vital Sign - Last 12Hours 06/14/17 09:49 Temp 98.7 Pulse 100 Resp 18 B/P (MAP) 123/77 (92) Pulse Ox 98 O2 Delivery Room Air Blood Pressure Mean: 92 Progress Note : Time: 10:28 Progress Note Patient was given hydrocodone 5 mg 2 tablets orally. X-ray of the right foot failed to demonstrate evidence of fracture or dislocation on my viewing of the films. I discussed findings with the patient. A postop shoe was applied. Departure Impression Impression: Primary Impression: Sprain of right foot Qualified Codes: S93.601A - Unspecified sprain of right foot, initial encounter Disposition: HOME, SELF-CARE Condition: Improved Departure-Patient Inst. Decision time for Depature: 10:29 Referrals: JEANETTE GARCIA MD (PCP/Family) Primary Care Physician Add. Discharge Instructions: Vicodin for pain. Postop shoe for comfort for the next several days. Return if any problems or questions. Ice and elevate. Follow-up with memory care program resident on Friday. All discharge instructions reviewed with patient and/or family. Voiced understanding. PARAM BEAUCHAMP MD Jun 14, 2017 10:10
[2017-06-14] MEDS ORDERED: HYDROcodone/APAP 5 MG/325 MG (LORTAB) TAB PO ONE (10:15)
[2017-06-14] MEDS ORDERED: HYDROcodone/APAP 7.5 MG/325 MG (LORTAB, LORCET PLUS) TABLET PO PRN (10:15)
--- NOTE | 2017-06-14 10:36 | Diagnostic Imaging Report ---
INDICATION: Right foot pain after injury. COMPARISON: None available. TECHNIQUE: Three nonweightbearing views of the right foot were obtained. FINDINGS: No acute fracture or traumatic malalignment. Joint spaces are well preserved. No osseous erosions. No radiopaque foreign body. IMPRESSION: No acute osseous abnormality in the right foot. Dictated by: Dictated on workstation # [id number]
[2017-06-14 10:45] VITALS: BP 123/77
== END 2017-06-14 10:44 | disposition home or self-care (01) ==
LOC: EDUNIT# 09:45 → ER 09:48
DX: S93.601A Unspecified sprain of right foot, initial encounter (principal); F90.9 Attention-deficit hyperactivity disorder, unspecified type; F41.9 Anxiety disorder, unspecified; Z98.51 Tubal ligation status; Z82.49 Family history of ischemic heart disease and other diseases of the circulatory system; Z90.710 Acquired absence of both cervix and uterus; Z87.59 Personal history of other complications of pregnancy, childbirth and the puerperium; W22.8XXA Striking against or struck by other objects, initial encounter
CPT/HCPCS: 73630

== ENCOUNTER 2017-09-21 16:07 | Emergency (ER) | payer SELFPAY ==
[~2017-09-21] VITALS: Ht 152.4 cm; Wt 58.1 kg
[2017-09-21] MEDS ORDERED: AMOXICILLIN 500 MG (POLYMOX) CAP PO STA (17:20)
[2017-09-21] MEDS ORDERED: HYDROcodone/APAP 5 MG/325 MG (LORTAB) TAB PO STA (17:20)
--- NOTE | 2017-09-21 17:24 | ED EENT ---
History of Present Illness General Chief Complaint: Dental Problems/Pain Stated Complaint: DENTAL PAIN Nursing Triage Note: ARRIVED VIA AMB TO ROOM 10. COMPLAINS OF CHRONIC DENTAL PAIN WITH A CHIPPED TOOTH THAT IS WORSE. DENTIST APPT SCHEDULED FOR FRIDAY. Source: patient Exam Limitations: no limitations History of Present Illness Date Seen by Provider: Sep 21, 2017 Time Seen by Provider: 17:10 Initial Comments Here with complaint of left upper dental pain near the canine. Has moderate amount of dental care with redness of the gums. She is to see the dentist on Friday. Pain is uncontrolled with oqca-nvk-ignnulo therapy. Denies nausea or vomiting. Denies swelling or breathing difficulties. Timing/Duration: gradual Severity: moderate Location: dental Prearrival Treatment: over the counter meds Associated Symptoms: No cough, No ear drainage, No facial pain/swelling, No fever, No nasal congestion/drainage, No sore throat; tooth pain Allergies and Home Medications Allergies Coded Allergies: No Known Drug Allergies (Unverified , 09/19/11) Home Medications Alprazolam 0.5 Mg Tablet, 0.5 TAB PO TID PRN for ANXIETY, (Reported) Patient Home Medication List Home Medication List Reviewed: Yes Review of Systems Constitutional: see HPI; No chills, No fever Ears: See HPI Nose: see HPI Mouth: see HPI Throat: see HPI Respiratory: no symptoms reported Cardiovascular: no symptoms reported Past Hlvkepw-Bfejnx-Zqdoad Hx Patient Social History Alcohol Use: Occasionally Uses Recreational Drug Use: No Smoking Status: Never a Smoker Recent Foreign Travel: No Contact w/Someone Who Travel: No Recent Infectious Disease Expo: No Recent Hopitalizations: No Immunizations Up To Date Tetanus Booster (TDap): Less than 5yrs Date of Influenza Vaccine: Jan 12, 2014 Seasonal Allergies Seasonal Allergies: Yes Past Medical History Surgeries: Yes (WISDOM TEETH, TEAR DUCT, c/s x2) Section, Hysterectomy, Tubal Ligation Respiratory: No Cardiac: No Neurological: No : No Reproductive Disorders: Yes 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 Sexually Transmitted Disease: No Genitourinary: No Gastrointestinal: No Musculoskeletal: No Endocrine: No (gestational diet controlled) HEENT: No Cancer: No Psychosocial: Yes ADD/ADHD, Anxiety Integumentary: No Blood Disorders: No Family Medical History Arthritis 19 MOTHER Cardiovascular disease 19 FATHER 19 MOTHER Diabetes mellitus 19 FATHER 19 MOTHER Hypertension 19 FATHER 19 MOTHER Myocardial infarction 19 FATHER 19 MOTHER Thyroid disease 19 MOTHER G8 SISTER No Pertinent Family Hx Physical Exam Vital Signs Vital Signs - First Documented 09/21/17 16:09 Temp 97.4 Pulse 80 Resp 18 B/P (MAP) 114/75 (88) Pulse Ox 98 O2 Delivery Room Air General Appearance: WD/WN, no apparent distress Ears: bilateral ear auricle normal, bilateral ear canal normal, bilateral ear TM normal Nose: normal inspection Mouth/Throat: pharynx normal, other (poor dentition with dental caries near the canine on the left upper. Also has moderate dental caries to the lower jaw on the left as well.) Neck: non-tender, full range of motion, supple, normal inspection Cardiovascular: regular rate, rhythm, no murmur Respiratory: lungs clear, normal breath sounds Neurologic/Psychiatric: alert, oriented x 3 Skin: normal color, warm/dry Progress/Results/Core Measures Results/Orders My Orders Orders - JULEE HOLLEY MD Hydrocodone/Apap 5/325 Tablet (Lortab 5 (09/21/17 17:20) Amoxicillin Capsule (Polymox Capsule) (09/21/17 17:20) Vital Signs/I&O 09/21/17 16:09 Temp 97.4 Pulse 80 Resp 18 B/P (MAP) 114/75 (88) Pulse Ox 98 O2 Delivery Room Air Blood Pressure Mean: 88 Progress Progress Note : Progress Note Seen and evaluated. Amoxicillin 1000 mg by mouth. Hydrocodone 5/325 mg by mouth. Discharged home with return precautions. Patient verbalize understanding instructions and agreement with plan. Departure Impression Primary Impression: Dental caries Disposition: 01 HOME, SELF-CARE Condition: Stable Departure-Patient Inst. Decision time for Depature: 17:45 Referrals: JEANETTE GARCIA MD (PCP/Family) Primary Care Physician Patient Instructions: Tooth Decay, Adult (DC), Tooth Abscess (DC) Add. Discharge Instructions: All discharge instructions reviewed with patient and/or family. Voiced understanding. Take medications as directed. Follow-up with your dentist on Friday as scheduled. You may use dental wax over the area of concern to decrease pain. Continue to brush her teeth. You may rinse mouth with salt water 3 times a day as well. You may take Tylenol/acetaminophen 1000 mg every 8 hours as needed for pain. You may take ibuprofen 600 mg every 8 hours as needed for pain. Return for worse pain, fever, vomiting, weakness, breathing problems or other concerns as needed. Scripts Amoxicillin (Amoxicillin) 500 Mg Capsule 500 MG PO TID, #21 CAP 0 Refills Prov: JULEE HOLLEY MD 09/21/17 Tramadol HCl (Tramadol HCl) 50 Mg Tablet 50 MG PO Q6H PRN for PAIN, #20 TAB 0 Refills Prov: JULEE HOLLEY MD 09/21/17 JULEE HOLLEY MD Sep 21, 2017 17:24
[2017-09-21] MEDS ORDERED: AMOX500C2 PO ×2 (17:43→17:44)
[2017-09-21] MEDS ORDERED: TRAM50TA2 PO (17:43)
[2017-09-21 17:55] VITALS: BP 100/80
== END 2017-09-21 17:55 | disposition home or self-care (01) ==
LOC: EDUNIT# 16:07 → ER 16:08
DX: K02.9 Dental caries, unspecified (principal); F41.9 Anxiety disorder, unspecified; F90.9 Attention-deficit hyperactivity disorder, unspecified type; Z82.49 Family history of ischemic heart disease and other diseases of the circulatory system; Z87.59 Personal history of other complications of pregnancy, childbirth and the puerperium; Z90.710 Acquired absence of both cervix and uterus; Z98.51 Tubal ligation status
CPT/HCPCS: 99283

== ENCOUNTER 2017-10-10 14:14 | Emergency (ER) | payer SELFPAY ==
[~2017-10-10] VITALS: Ht 152.4 cm; Wt 54.4 kg
[~2017-10-10 14:14] MED LIST changes: +TRAM50TA2 PO
--- NOTE | 2017-10-10 15:06 | ED Upper Extremity ---
General Chief Complaint: Upper Extremity Stated Complaint: FALL/LEFT ARM INJURY Source: patient Exam Limitations: no limitations History of Present Illness Date Seen by Provider: Oct 10, 2017 Time Seen by Provider: 15:04 Initial Comments to ER per private vehicle with reports of left arm pain. This began just prior to arrival when she fell about 5-6 feet out of a tree. She landed on the left side and the left arm was also caught in a tree limb on the way down. She complains of pain primarily to the distal humerus and proximal forearm but the pain encompasses the entire humerus and the entire forearm. Did not hit her head , no neck pain or injury. No other complaints of pain or injury. Onset: just prior to arrival Severity: moderate Pain/Injury Location: left shoulder, left arm, left elbow, left forearm Method of Injury: fell Modifying Factors: Worse With Movement Allergies and Home Medications Allergies Coded Allergies: No Known Drug Allergies (Unverified , 09/19/11) Home Medications Alprazolam 0.5 Mg Tablet, 0.5 TAB PO TID PRN for ANXIETY, (Reported) Amoxicillin 500 Mg Capsule, 500 MG PO TID Prescribed by: JULEE HOLLEY on 09/21/17 1744 Hydrocodone/Acetaminophen 1 Each Tablet, 1 EACH PO Q4H PRN for PAIN-MODERATE TO SEVERE Prescribed by: FERDINAND HOANG on 10/10/17 1612 Tramadol HCl 50 Mg Tablet, 50 MG PO Q6H PRN for PAIN Prescribed by: JULEE HOLLEY on 09/21/17 1743 Patient Home Medication List Home Medication List Reviewed: Yes Constitutional: see HPI EENTM: see HPI Respiratory: no symptoms reported Cardiovascular: no symptoms reported Genitourinary: no symptoms reported Musculoskeletal: see HPI Skin: no symptoms reported Psychiatric/Neurological: No Symptoms Reported Past Ytbfrmr-Vceqnl-Dfefsz Hx Patient Social History Recent Foreign Travel: No Contact w/Someone Who Travel: No Recent Hopitalizations: No Immunizations Up To Date Tetanus Booster (TDap): Less than 5yrs Date of Influenza Vaccine: Jan 12, 2014 Seasonal Allergies Seasonal Allergies: Yes Past Medical History Surgeries: Yes (WISDOM TEETH, TEAR DUCT, c/s x2) Section, Hysterectomy, Tubal Ligation Respiratory: No Cardiac: No Neurological: No Reproductive Disorders: Yes 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 Sexually Transmitted Disease: No Genitourinary: No Gastrointestinal: No Musculoskeletal: No Endocrine: No (gestational diet controlled) HEENT: No Cancer: No Psychosocial: Yes ADD/ADHD, Anxiety Integumentary: No Blood Disorders: No Family Medical History Arthritis 19 MOTHER Cardiovascular disease 19 FATHER 19 MOTHER Diabetes mellitus 19 FATHER 19 MOTHER Hypertension 19 FATHER 19 MOTHER Myocardial infarction 19 FATHER 19 MOTHER Thyroid disease 19 MOTHER G8 SISTER No Pertinent Family Hx Physical Exam Vital Signs Vital Signs - First Documented 10/10/17 15:00 Temp 97.1 Pulse 119 Resp 18 B/P (MAP) 120/74 (89) Pulse Ox 99 Capillary Refill : General Appearance: WD/WN, no apparent distress HEENT: PERRL/EOMI, normal ENT inspection Neck: non-tender, full range of motion Respiratory: no respiratory distress, no accessory muscle use Gastrointestinal: normal bowel sounds, non tender Shoulder: normal inspection, limited ROM, pain, soft tissue tenderness (there is no ecchymosis abrasion or erythema or deformity) Elbow/Forearm: normal inspection, Left, pain (there is no ecchymosis abrasion or erythema or deformity), soft tissue tenderness Wrist: Yes normal inspection, Yes non-tender Hand: normal inspection, non-tender, Left Neurologic/Psychiatric: alert, normal mood/affect, oriented x 3 Skin: normal color, warm/dry Comments t the hand she has a strong radial pulse with brisk capillary refill of the fingertips and sensation is intact. Progress/Results/Core Measures Results/Orders My Orders Orders - FERDINAND HOANG APRN Humerus, Left, 2 Views (10/10/17 15:03) Forearm, Left, 2 Views (10/10/17 15:03) Elbow, Left, 3 Views (10/10/17 15:39) Hydrocodone/Apap 5/325 Tablet (Lortab 5 (10/10/17 15:45) Medications Given in ED Current Medications Medications Dose Ordered Sig/Abdi Route Start Time Stop Time Status Last Admin Dose Admin Acetaminophen/ Hydrocodone Bitart 1 tab ONCE ONCE PO 10/10/17 15:45 10/10/17 15:46 DC 10/10/17 15:51 1 TAB Vital Signs/I&O 10/10/17 15:00 Temp 97.1 Pulse 119 Resp 18 B/P (MAP) 120/74 (89) Pulse Ox 99 Departure Communication (Admissions) I did place the patient in a posterior long-arm splint using 4 inch Ortho- Glass. She was given a sling. Impression Primary Impression: Contusion of arm, left, multiple sites Additional Impression: Radial head fracture, closed Disposition: 01 HOME, SELF-CARE Condition: Stable Departure-Patient Inst. Decision time for Depature: 15:32 Referrals: GERALDINE TENORIO MD, DANIEL J MD (PCP/Family) Primary Care Physician PARAM BECERRA JOHN T MD ZAFUTA, MICHAEL P MD Patient Instructions: Contusion (DC), Elbow Fracture (DC) Add. Discharge Instructions: 1. Wear the splint at all times until you follow-up with orthopedics. Wear the sling as well. Do not let this get wet so this will mean covering with a trash bag during your shower.Call orthopedic surgeon of your choosing on Friday to make an appointment to be seen within the next 1-2 weeks. 2. Motrin for pain control in addition to the prescribed pain medication 3. Follow-up with your doctor next week 4. Return to ER for any worsening. Scripts Hydrocodone/Acetaminophen ([place] 5-325 Tablet) 1 Each Tablet 1 EACH PO Q4H PRN for PAIN-MODERATE TO SEVERE, #20 TAB Prov: FERDINAND HOANG APRN 10/10/17 Work/School Note: Work Release Form Date Seen in the Emergency Department: Oct 10, 2017 Return to Work: Oct 11, 2017 FERDINAND HOANG APRN Oct 10, 2017 15:06
--- NOTE | 2017-10-10 15:37 | Diagnostic Imaging Report ---
PATIENT HISTORY: Fall from tree with left arm pain. TECHNIQUE: Two views of the left humerus. COMPARISON: None. FINDINGS: No acute fracture or dislocation is seen in the left humerus. Alignment appears normal. The joint spaces are preserved. IMPRESSION: No acute osseous abnormality seen in the left humerus. Dictated by: Dictated on workstation # [id number]
--- NOTE | 2017-10-10 15:38 | Diagnostic Imaging Report ---
PATIENT HISTORY: Left forearm pain after fall from tree. TECHNIQUE: Two views of the left forearm. COMPARISON: None. FINDINGS: There is subtle cortical irregularity at the medial aspect of the left radial head. Alignment appears normal. Joint spaces are preserved. The lateral view is suboptimal for evaluation of a joint effusion in the elbow. IMPRESSION: Subtle cortical irregularity at the medial aspect of the left radial head, it could represent a nondisplaced fracture. If pain localizes to this location, consider dedicated elbow radiographs. Dictated by: Dictated on workstation # [id number]
[2017-10-10] MEDS ORDERED: HYDROcodone/APAP 5 MG/325 MG (LORTAB) TAB PO ONE (15:45)
--- NOTE | 2017-10-10 16:07 | Diagnostic Imaging Report ---
PATIENT HISTORY: Fall from tree, left arm pain. TECHNIQUE: Three views of the left elbow. COMPARISON: Radiographs from the same day. FINDINGS: Redemonstrated is cortical irregularity at the medial aspect of the left radial neck. This remains concerning for a nondisplaced fracture, although no significant joint effusion is seen. No radiopaque foreign body is seen. Alignment otherwise appears normal. IMPRESSION: Cortical irregularity at the medial aspect of the left radial neck is again seen, although no significant joint effusion is seen. This remains concerning for a nondisplaced fracture, especially if this is the site of pain. Dictated by: Dictated on workstation # [id number]
[2017-10-10] MEDS ORDERED: HYDR-757 PO (16:12)
[2017-10-10 16:34] VITALS: BP 120/74
== END 2017-10-10 16:34 | disposition home or self-care (01) ==
LOC: EDUNIT# 14:14 → ER 14:17
DX: S52.122A Displaced fracture of head of left radius, initial encounter for closed fracture (principal); S40.022A Contusion of left upper arm, initial encounter; F41.9 Anxiety disorder, unspecified; F90.9 Attention-deficit hyperactivity disorder, unspecified type; Z90.710 Acquired absence of both cervix and uterus; Z87.59 Personal history of other complications of pregnancy, childbirth and the puerperium; Z98.51 Tubal ligation status; W14.XXXA Fall from tree, initial encounter
CPT/HCPCS: 29125; 73060; 73080; 73090

== ENCOUNTER 2018-01-02 13:10 | Emergency (ER) | payer SELFPAY ==
[~2018-01-02] VITALS: Ht 152.4 cm; Wt 64.4 kg
[~2018-01-02 13:10] MED LIST changes: +HYDR-4226 PO; -OXYC-202 PO; +OXYC1TAB12 PO
--- NOTE | 2018-01-02 14:22 | Diagnostic Imaging Report ---
INDICATION: Left elbow pain. AP, oblique, and lateral views of the left elbow are obtained. FINDINGS: No fracture or acute bony abnormality is seen. Joint spaces are unremarkable. IMPRESSION: Negative left elbow. Dictated by: Dictated on workstation # [id number]
--- NOTE | 2018-01-02 14:30 | Diagnostic Imaging Report ---
Indication: Left shoulder pain. AP, oblique, and transcatheter views of the left shoulder are obtained. No fracture or acute bony abnormality is seen. Glenohumeral joint and AC joint appear unremarkable. Impression: Negative left shoulder. Dictated by: Dictated on workstation # [id number]
--- NOTE | 2018-01-02 14:59 | ED Upper Extremity ---
General Chief Complaint: Upper Extremity Stated Complaint: L ARM PAIN;INJ 2 MONTHS AGO Nursing Triage Note: pt presents to ed with complaints of l elbow pain after falling off step stool whem painting today. pt reports she had a fx of her elbow a couple months ago but was unable to follow up with ortho after. Nursing Sepsis Screen: No Definite Risk Source: patient Exam Limitations: no limitations History of Present Illness Date Seen by Provider: Jan 02, 2018 Time Seen by Provider: 13:40 Initial Comments Patient is a 27 year old female who presents to the emergency room with complaints of left elbow pain after falling off of a step stool while painting today. She denies other injuries from the fall. She reports that she has fractured the elbow 3 months ago but never followed up with an orthopedic surgeon. Onset: just prior to arrival Pain/Injury Location: left elbow, left wrist Method of Injury: fell Modifying Factors: Worse With Movement Allergies and Home Medications Allergies Coded Allergies: No Known Drug Allergies (Unverified , 09/19/11) Home Medications Alprazolam 0.5 Mg Tablet, 0.5 TAB PO TID PRN for ANXIETY, (Reported) Patient Home Medication List Home Medication List Reviewed: Yes Review of Systems Constitutional: see HPI; No chills, No fever Musculoskeletal: see HPI, joint pain (left elbow and left shoulder pain.) All Other Systems Reviewed Negative Unless Noted: Yes Past Qxeoplo-Zlwxpk-Upnnyi Hx Past Med/Social Hx: Reviewed Nursing Past Med/Soc Hx Patient Social History Alcohol Use: Denies Use Recreational Drug Use: No Smoking Status: Never a Smoker Recent Foreign Travel: No Contact w/Someone Who Travel: No Recent Infectious Disease Expo: No Recent Hopitalizations: No Physical Abuse: No Sexual Abuse: No Mistreated: No Fear: No Immunizations Up To Date Tetanus Booster (TDap): Less than 5yrs Date of Influenza Vaccine: Jan 12, 2014 Seasonal Allergies Seasonal Allergies: Yes Past Medical History Surgeries: Yes (WISDOM TEETH, TEAR DUCT, c/s x2) Section, Hysterectomy, Tubal Ligation Respiratory: No Cardiac: No Neurological: No Reproductive Disorders: Yes Female 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 Sexually Transmitted Disease: No Genitourinary: No Gastrointestinal: No Musculoskeletal: No Endocrine: No (gestational diet controlled) HEENT: No Cancer: No Psychosocial: Yes ADD/ADHD, Anxiety Integumentary: No Blood Disorders: No Family Medical History Reviewed Nursing Family Hx Arthritis 19 MOTHER Cardiovascular disease 19 FATHER 19 MOTHER Diabetes mellitus 19 FATHER 19 MOTHER Hypertension 19 FATHER 19 MOTHER Myocardial infarction 19 FATHER 19 MOTHER Thyroid disease 19 MOTHER G8 SISTER No Pertinent Family Hx Physical Exam Vital Signs Vital Signs - First Documented 01/02/18 13:45 Temp 98.6 Pulse 78 Resp 16 B/P (MAP) 109/60 (76) Pulse Ox 99 Capillary Refill : Less Than 3 Seconds Height, Weight, BMI Height: 5'0" Weight: 142lbs. 8.0oz. 64.753599ou; 24.7 BMI Method:Stated General Appearance: WD/WN, no apparent distress Neck: non-tender, full range of motion, supple, normal inspection Cardiovascular: normal peripheral pulses, regular rate, rhythm, no edema, no gallop, no JVD, no murmur Respiratory: chest non-tender, lungs clear, normal breath sounds, no respiratory distress, no accessory muscle use Shoulder: normal inspection, normal ROM, pain (left shoulder) Elbow/Forearm: normal inspection, normal ROM, Left, pain, soft tissue tenderness Wrist: Yes normal inspection Hand: normal inspection Neurologic/Tendon: normal sensation, normal motor functions, normal tendon functions, responds to pain, no evidence tendon injury Neurologic/Psychiatric: alert, normal mood/affect, oriented x 3 Skin: normal color, warm/dry Progress/Results/Core Measures Results/Orders My Orders Vital Signs/I&O Blood Pressure Mean: 76 Progress Progress Note : Time: 14:50 Progress Note I have seen and evaluated the patient. I have informed her of normal imaging studies. I have given her a one time dose of hydrocodone in the ER for pain relief. Sling was placed on patient for comfort. She agrees with plan of care, follow up, and return precautions were given. Diagnostic Imaging Diagonstic Imaging: Xray Plain Films/CT/US/NM/MRI: elbow, other (left shoulder) Comments NAME: TEODORACHELYCLAU [facility] REC#: [id number] PHYSICIAN: CLAUDIA SILVEIRA CC: CLAUDIA SILVEIRA; LINDA CASTELAN MD Page 1 of 1 RADIOLOGY REPORT [facility] [place] CC: CLAUDIA SILVEIRA; LINDA CASTELAN MD Page 1 of 1 RADIOLOGY REPORT NAME: CLAU ABDULLAHI [facility] REC#: [id number] PT STATUS: [facility] ER : 1990 PHYSICIAN: CLAUDIA SILVEIRA ADMIT DATE: 01/02/18/ER Signed Date of Exam: 01/02/18 ELBOW, LEFT, 3 VIEWS INDICATION: Left elbow pain. AP, oblique, and lateral views of the left elbow are obtained. FINDINGS: No fracture or acute bony abnormality is seen. Joint spaces are unremarkable. IMPRESSION: Negative left elbow. Dictated by: Dictated on workstation # [id number] Dict: 01/02/18 1414 Trans: 01/02/181622 Interpreted by: LINDA CASTELAN MD Electronically signed by: LINDA CASTELAN MD 01/02/181622 NAME: CLAU ABDULLAHI [facility] REC#: [id number] PHYSICIAN: CLAUDIA SILVEIRA CC: CLAUDIA SILVEIRA; LINDA CASTELAN MD Page 1 of 1 RADIOLOGY REPORT [facility] [place] CC: CLAUDIA SILVEIRA; LINDA CASTELAN MD Page 1 of 1 RADIOLOGY REPORT NAME: CLAU ABDULLAHI [facility] REC#: [id number] PT STATUS: [facility] ER : 1990 PHYSICIAN: CLAUDIA SILVEIRA ADMIT DATE: 01/02/18/ER Signed Date of Exam: 01/02/18 SHOULDER, LEFT, 3 VIEWS Indication: Left shoulder pain. AP, oblique, and transcatheter views of the left shoulder are obtained. No fracture or acute bony abnormality is seen. Glenohumeral joint and AC joint appear unremarkable. Impression: Negative left shoulder. Dictated by: Dictated on workstation # [id number] Dict: 01/02/18 141 Trans: 01/02/181622 Interpreted by: LINDA CASTELAN MD Electronically signed by: LINDA CASTELAN MD 01/02/181622 Reviewed: Reviewed by Va Departure Impression Primary Impression: Left elbow contusion Disposition: 01 HOME, SELF-CARE Condition: Stable/Unchanged Departure-Patient Inst. Decision time for Depature: 14:55 Referrals: JEANETTE GARCIA MD (PCP/Family) Primary Care Physician JESSICA DOWELL MD, ROBERT F DO ZAFUTA, MICHAEL P MD Patient Instructions: How to Use a Shoulder Sling, Contusion (DC) Add. Discharge Instructions: Rest, ice to the sore areas for 20 minute intervals, use the sling as needed for comfort, elevate elbow as much as possible. You may use ibuprofen and Tylenol as directed by the bottle for pain. Follow up with your primary care provider or an orthopedic surgeon for further evaluation within 1 week. All discharge instructions reviewed with patient and/or family. Voiced understanding. CLAUDIA SILVEIRA Jan 02, 2018 14:59
[2018-01-02] MEDS ORDERED: HYDROcodone/APAP 5 MG/325 MG (LORTAB) TAB PO ONE (15:00)
[2018-01-02 15:15] VITALS: BP 121/70
== END 2018-01-02 15:15 | disposition home or self-care (01) ==
LOC: EDUNIT# 13:10 → ER 13:11
DX: S50.02XA Contusion of left elbow, initial encounter (principal); F90.9 Attention-deficit hyperactivity disorder, unspecified type; F41.9 Anxiety disorder, unspecified; Z82.49 Family history of ischemic heart disease and other diseases of the circulatory system; Z98.890 Other specified postprocedural states; Z90.710 Acquired absence of both cervix and uterus; Z98.51 Tubal ligation status; W08.XXXA Fall from other furniture, initial encounter
CPT/HCPCS: 73030; 73080

== ENCOUNTER 2018-01-03 11:46 | Emergency (ER) | payer SELFPAY ==
[~2018-01-03] VITALS: Ht 160 cm; Wt 63.5 kg
[2018-01-03] MEDS ORDERED: IBUPROFEN 800 MG (MOTRIN) TAB PO ONE (12:00)
--- NOTE | 2018-01-03 12:01 | ED Upper Extremity ---
General Chief Complaint: Upper Extremity Stated Complaint: ARM PAIN/NUMBNESS Nursing Triage Note: ARRIVED VIA AMB HOLDING LEFT ARM. STATES SHE FRACTURED IT IN OCTOBER THEN FELL OFF A LADDER YESTERDAY ET REINJURING IT. CAME HERE ET STATES THEY TYLENOL IS NOT WORKING AND NOW HER FINGERS ARE NUMB ON THE LEFT SIDE. Nursing Sepsis Screen: No Definite Risk History of Present Illness Date Seen by Provider: Jan 03, 2018 Time Seen by Provider: 11:58 Initial Comments This 27-year-old white female returns to emergency department after evaluation yesterday for an injury involving her left arm when she fell off a ladder. Her mechanism and the injury appears to have been falling on an outstretched arm. The patient had pain in her left elbow yesterday by report her x-ray was negative. Although the patient has been referred to orthopedics for further evaluation on Friday the patient is here because of increasing pain now in the left shoulder and wrist as well as the left elbow. She denies pain in her head neck back and right upper or lower extremities. The patient sustained a similar injury falling off a ladder 3 months ago to the left elbow. Allergies and Home Medications Allergies Coded Allergies: No Known Drug Allergies (Unverified , 09/19/11) Home Medications Alprazolam 0.5 Mg Tablet, 0.5 TAB PO TID PRN for ANXIETY, (Reported) Patient Home Medication List Home Medication List Reviewed: Yes Review of Systems Constitutional: No chills EENTM: No blurred vision Respiratory: No cough Cardiovascular: No chest pain Genitourinary: No decreased output Musculoskeletal: No back pain; joint pain (left elbow) Skin: No rash Psychiatric/Neurological: No Symptoms Reported Past Bhpubua-Jzztgk-Jvafmu Hx Past Med/Social Hx: Reviewed Nursing Past Med/Soc Hx Patient Social History Recent Foreign Travel: No Contact w/Someone Who Travel: No Recent Infectious Disease Expo: No Recent Hopitalizations: No Immunizations Up To Date Tetanus Booster (TDap): Less than 5yrs Date of Influenza Vaccine: Jan 12, 2014 Seasonal Allergies Seasonal Allergies: Yes Past Medical History Surgeries: Yes (WISDOM TEETH, TEAR DUCT, c/s x2) Section, Hysterectomy, Tubal Ligation Respiratory: No Cardiac: No Neurological: No Reproductive Disorders: Yes Female 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 Sexually Transmitted Disease: No Genitourinary: No Gastrointestinal: No Musculoskeletal: No Endocrine: No (gestational diet controlled) HEENT: No Cancer: No Psychosocial: Yes ADD/ADHD, Anxiety Integumentary: No Blood Disorders: No Family Medical History Arthritis 19 MOTHER Cardiovascular disease 19 FATHER 19 MOTHER Diabetes mellitus 19 FATHER 19 MOTHER Hypertension 19 FATHER 19 MOTHER Myocardial infarction 19 FATHER 19 MOTHER Thyroid disease 19 MOTHER G8 SISTER No Pertinent Family Hx Physical Exam Vital Signs Vital Signs - First Documented 01/03/18 11:50 Temp 98.0 Pulse 79 Resp 16 B/P (MAP) 138/78 (98) Pulse Ox 99 O2 Delivery Room Air Capillary Refill : Less Than 3 Seconds Height, Weight, BMI Height: 5'3.00" Weight: 140lbs. 8.0oz. 63.624762dh; 24.7 BMI Method:Stated General Appearance: mild distress HEENT: normal ENT inspection Neck: normal inspection Cardiovascular: regular rate, rhythm Respiratory: lungs clear Gastrointestinal: non tender Shoulder: pain (there is apparent pain and tenderness to palpation left shoulder) Elbow/Forearm: pain (there is pain and tenderness palpation in the left elbow) , swelling (there is questionable swelling of the left elbow.) Wrist: Yes pain (there is tenderness to palpation) Hand: normal inspection ( and pain in the left wrist.), no evidence of injury Neurologic/Psychiatric: no motor/sensory deficits, alert, normal mood/affect Skin: normal color, warm/dry Progress/Results/Core Measures Results/Orders My Orders Orders - PARAM BEAUCHAMP MD Ibuprofen Tablet (Motrin Tablet) (01/03/18 12:00) Shoulder, Left, 3 Views (01/03/18 11:56) Elbow, Left, 3 Views (01/03/18 11:56) Wrist, Left, 3 Views Or More (01/03/18 11:56) Tramadol Tablet (Ultram Tablet) (01/03/18 12:30) Vital Signs/I&O 01/03/18 11:50 Temp 98.0 Pulse 79 Resp 16 B/P (MAP) 138/78 (98) Pulse Ox 99 O2 Delivery Room Air Blood Pressure Mean: 98 Progress Progress Note : Time: 12:30 Progress Note X-rays of the patient's left shoulder elbow and wrist based on my interpretation failed to demonstrate evidence of fracture or dislocation. The patient was given hydrocodone 5 mg tablets (2) in the emergency department for immediate relief of her discomfort. I asked the nurses to give the patient sling for him comfort. I provided a prescription of 10 tablets of hydrocodone 5 mg with 300 mg of acetaminophen for pain until she can follow-up with orthopedics on Friday. I that she return for any further problems or questions. Departure Impression Primary Impression: Contusion of elbow, left Qualified Codes: S50.02XD - Contusion of left elbow, subsequent encounter Disposition: HOME, SELF-CARE Condition: Improved Departure-Patient Inst. Decision time for Depature: 12:32 Referrals: JEANETTE GARCIA MD (PCP/Family) Primary Care Physician Patient Instructions: Contusion (DC) Add. Discharge Instructions: Follow-up with orthopedics on Friday. Hydrocodone for pain. Sling for comfort. Return if any problems or questions. All discharge instructions reviewed with patient and/or family. Voiced understanding. PARAM BEAUCHAMP MD Jan 03, 2018 12:01
[2018-01-03] MEDS ORDERED: HYDROcodone/APAP 5 MG/325 MG (LORTAB) TAB PO ONE (12:30)
--- NOTE | 2018-01-03 12:39 | Diagnostic Imaging Report ---
INDICATION: Fall, left wrist pain 3 views of the left wrist shows no fracture, dislocation or other abnormality. IMPRESSION: Normal left wrist. Dictated by: Dictated on workstation # [id number]
--- NOTE | 2018-01-03 12:39 | Diagnostic Imaging Report ---
INDICATION: Fall, left shoulder pain 3 views of the left shoulder shows no fracture, dislocation or other abnormality. IMPRESSION: Normal left shoulder. There is no change from 01/02/2018. Dictated by: Dictated on workstation # [id number]
[2018-01-03 12:40] VITALS: BP 138/78
--- NOTE | 2018-01-03 12:44 | Diagnostic Imaging Report ---
INDICATION: Fall, left elbow pain. Numbness in the left arm. FINDINGS: 3 views of the left elbow shows no fracture, dislocation or other abnormality. IMPRESSION: Normal left elbow. There is no change from 01/02/2018. Dictated by: Dictated on workstation # [id number]
== END 2018-01-03 12:40 | disposition home or self-care (01) ==
LOC: EDUNIT# 11:46 → ER 11:49
DX: S50.02XA Contusion of left elbow, initial encounter (principal); M25.532 Pain in left wrist; M25.512 Pain in left shoulder; F90.9 Attention-deficit hyperactivity disorder, unspecified type; F41.9 Anxiety disorder, unspecified; Z82.49 Family history of ischemic heart disease and other diseases of the circulatory system; Z98.890 Other specified postprocedural states; Z90.710 Acquired absence of both cervix and uterus; Z98.51 Tubal ligation status; W11.XXXA Fall on and from ladder, initial encounter
CPT/HCPCS: 73030; 73080; 73110

== ENCOUNTER 2018-09-14 18:30 | Emergency (ER) | payer SELFPAY ==
[~2018-09-14] VITALS: Ht 152.4 cm; Wt 64.9 kg
[2018-09-14 19:04] LABS: BILIRUBIN,URINE NEGATIVE (NEGATIVE); CLARITY,URINE CLEAR; COLOR,URINE YELLOW; GLUCOSE, URINE (UA) NEGATIVE (NEGATIVE); KETONES,URINE NEGATIVE (NEGATIVE); LEUKOCYTE ESTERASE ,URINE NEGATIVE (NEGATIVE); NITRITE,URINE NEGATIVE (NEGATIVE); PH,URINE 5 (5-9); PROTEIN,URINE NEGATIVE (NEGATIVE); UROBILINOGEN,URINE NORMAL (NORMAL)
--- NOTE | 2018-09-14 19:04 | NUR ---
report given to florinda hadley
[2018-09-14 19:07] LABS: BASOPHILS % (AUTO) 0 % (0-10); EOSINOPHILS # (AUTO) 0.3 10^3/uL (0.0-0.3); EOSINOPHILS % (AUTO) 4 % (0-10); HEMATOCRIT 41 % (35-52); HEMOGLOBIN 13.4 G/DL (11.5-16.0); LYMPHOCYTES # (AUTO) 2.1 X 10^3 (1.0-4.0); LYMPHOCYTES % (AUTO) 23 % (12-44); MEAN CORPUSCULAR HEMOGLOBIN 29 PG (25-34); MEAN CORPUSCULAR HGB CONC 33 G/DL (32-36); MEAN CORPUSCULAR VOLUME 87 FL (80-99); MEAN PLATELET VOLUME 9.5 FL (7.4-10.4); MONOCYTES # (AUTO) 0.6 X 10^3 (0.0-1.0); MONOCYTES % (AUTO) 6 % (0-12); NEUTROPHILS # (AUTO) 6.2 X 10^3 (1.8-7.8); NEUTROPHILS % (AUTO) 67 % (42-75); PLATELET COUNT 248 10^3/uL (130-400); RED CELL DISTRIBUTION WIDTH 13.4 % (10.0-14.5); WHITE BLOOD COUNT 9.2 10^3/uL (4.3-11.0)
[2018-09-14 19:11] LABS: BACTERIA,URINE TRACE /HPF
--- NOTE | 2018-09-14 19:20 | ED Abdominal Pain ---
General Chief Complaint: Abdominal/GI Problems Stated Complaint: L FLANK PAIN Nursing Triage Note: Pt amb to triage w/o difficutly. a&ox4. c/o lt flank pain radiating to lt lower abd for approx x1 wk. Reports increase in severity throughout past 3 days. Reports intermittent n/v/d. Denies urinary symptoms. Described pain as "stabbing." Sepsis Screen: No Definite Risk Source of Information: Patient Exam Limitations: No Limitations History of Present Illness Date Seen by Provider: Sep 14, 2018 Time Seen by Provider: 18:50 Allergies and Home Medications Allergies Coded Allergies: No Known Drug Allergies (Unverified , 09/19/11) Home Medications Alprazolam 0.5 Mg Tablet, 0.5 TAB PO TID PRN for ANXIETY, (Reported) Past [id number] Hx Patient Social History Alcohol Use: Rarely Uses Recreational Drug Use: No 2nd Hand Smoke Exposure: No Recent Foreign Travel: No Contact w/Someone Who Travel: No Recent Infectious Disease Expo: No Recent Hopitalizations: No Immunizations Up To Date Tetanus Booster (TDap): Less than 5yrs Date of Influenza Vaccine: Jan 12, 2014 Seasonal Allergies Seasonal Allergies: Yes Past Medical History Surgeries: Yes (WISDOM TEETH, TEAR DUCT, c/s x2) Section, Hysterectomy, Tubal Ligation Respiratory: No Cardiac: No Neurological: No Reproductive Disorders: Yes Female 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 Sexually Transmitted Disease: No Genitourinary: No Gastrointestinal: No Musculoskeletal: No Endocrine: No (gestational diet controlled) HEENT: No Cancer: No Psychosocial: Yes ADD/ADHD, Anxiety Integumentary: No Blood Disorders: No Family Medical History Arthritis 19 MOTHER Cardiovascular disease 19 FATHER 19 MOTHER Diabetes mellitus 19 FATHER 19 MOTHER Hypertension 19 FATHER 19 MOTHER Myocardial infarction 19 FATHER 19 MOTHER Thyroid disease 19 MOTHER G8 SISTER No Pertinent Family Hx Physical Exam Vital Signs Vital Signs - First Documented 09/14/18 18:37 Temp 97.4 Pulse 109 Resp 18 B/P (MAP) 107/83 (91) Pulse Ox 97 O2 Delivery Room Air Capillary Refill : Less Than 3 Seconds Height/Weight/BMI Height: 5'0" Weight: 143lbs. 8.0oz. 64.357744ao; 24.7 BMI Method:Stated Progress/Results/Core Measures Results/Orders Lab Results Laboratory Tests Test 09/14/18 18:55 09/14/18 18:57 Range/Units White Blood Count 9.2 4.3-11.0 10^3/uL Red Blood Count 4.68 4.35-5.85 10^6/uL Hemoglobin 13.4 11.5-16.0 G/DL Hematocrit 41 35-52 % Mean Corpuscular Volume 87 80-99 FL Mean Corpuscular Hemoglobin 29 25-34 PG Mean Corpuscular Hemoglobin Concent 33 32-36 G/DL Red Cell Distribution Width 13.4 10.0-14.5 % Platelet Count 248 130-400 10^3/uL Mean Platelet Volume 9.5 7.4-10.4 FL Neutrophils (%) (Auto) 67 42-75 % Lymphocytes (%) (Auto) 23 12-44 % Monocytes (%) (Auto) 6 0-12 % Eosinophils (%) (Auto) 4 0-10 % Basophils (%) (Auto) 0 0-10 % Neutrophils # (Auto) 6.2 1.8-7.8 X 10^3 Lymphocytes # (Auto) 2.1 1.0-4.0 X 10^3 Monocytes # (Auto) 0.6 0.0-1.0 X 10^3 Eosinophils # (Auto) 0.3 0.0-0.3 10^3/uL Basophils # (Auto) 0.0 0.0-0.1 10^3/uL Sodium Level 141 135-145 MMOL/L Potassium Level 3.7 3.6-5.0 MMOL/L Chloride Level 111 H 98-107 MMOL/L Carbon Dioxide Level 18 L 21-32 MMOL/L Anion Gap 12 5-14 MMOL/L Blood Urea Nitrogen 7 7-18 MG/DL Creatinine 0.78 0.60-1.30 MG/DL Estimat Glomerular Filtration Rate > 60 BUN/Creatinine Ratio 9 Glucose Level 92 70-105 MG/DL Calcium Level 8.8 8.5-10.1 MG/DL Corrected Calcium 8.5-10.1 MG/DL Total Bilirubin 0.1 0.1-1.0 MG/DL Aspartate Amino Transf (AST/SGOT) 19 5-34 U/L Alanine Aminotransferase (ALT/SGPT) 14 0-55 U/L Alkaline Phosphatase 72 40-136 U/L Total Protein 7.7 6.4-8.2 GM/DL Albumin 4.6 H 3.2-4.5 GM/DL Amylase Level 49 25-125 U/L Lipase 184 H 8-78 U/L Urine Color YELLOW Urine Clarity CLEAR Urine pH 5 5-9 Urine Specific [place] 1.005 L 1.016-1.022 Urine Protein NEGATIVE NEGATIVE Urine Glucose (UA) NEGATIVE NEGATIVE Urine Ketones NEGATIVE NEGATIVE Urine Nitrite NEGATIVE NEGATIVE Urine Bilirubin NEGATIVE NEGATIVE Urine Urobilinogen NORMAL NORMAL MG/DL Urine Leukocyte Esterase NEGATIVE NEGATIVE Urine RBC (Auto) NEGATIVE NEGATIVE Urine RBC NONE /HPF Urine WBC NONE /HPF Urine Squamous Epithelial Cells 2-5 /HPF Urine Crystals NONE /LPF Urine Bacteria TRACE /HPF Urine Casts NONE /LPF Urine Mucus NEGATIVE /LPF Urine Culture Indicated NO My Orders Orders - CLAUDIA SILVEIRA Comprehensive Metabolic Panel (09/14/18 18:52) Lipase (09/14/18 18:52) Amylase (09/14/18 18:52) Ua Culture If Indicated (09/14/18 18:52) Ed Iv/Invasive Line Start (09/14/18 18:52) Cbc With Automated Diff (09/14/18 18:52) Ketorolac Injection (Toradol Injection) (09/14/18 19:45) Ct Abdomen/Pelvis W (09/14/18 19:58) Iohexol Injection (Omnipaque 350 Mg/Ml 1 (09/14/18 20:00) Received Contrast (Hold Metformin- Contr (09/14/18 20:00) Ns (Ivpb) (Sodium Chloride 0.9% Ivpb Bag (09/14/18 20:00) Fentanyl Injection (Sublimaze Injection (09/14/18 20:30) Medications Given in ED Current Medications Medications Dose Ordered Sig/Abdi Route Start Time Stop Time Status Last Admin Dose Admin Fentanyl Citrate 50 mcg ONCE ONCE IVP 09/14/18 20:30 09/14/18 20:31 DC 09/14/18 21:03 50 MCG Iohexol 100 ml ONCE ONCE IV 09/14/18 20:00 09/14/18 20:08 DC 09/14/18 20:40 100 ML Ketorolac Tromethamine 30 mg ONCE ONCE IVP 09/14/18 19:45 09/14/18 19:46 DC 09/14/18 19:57 30 MG Sodium Chloride 100 ml ONCE ONCE IV 09/14/18 20:00 09/14/18 20:08 DC 09/14/18 20:41 80 ML Vital Signs/I&O 09/14/18 18:37 Temp 97.4 Pulse 109 Resp 18 B/P (MAP) 107/83 (91) Pulse Ox 97 O2 Delivery Room Air Blood Pressure Mean: 91 Departure Impression Primary Impression: Mesenteric adenitis Disposition: HOME, SELF-CARE Condition: Stable/Unchanged Departure-Patient Inst. Decision time for Depature: 21:18 Ref[facility]: [facility] [place] Primary Care Physician Patient Instructions: Mesenteric Lymphadenitis (DC) Add. Discharge Instructions: Follow-up with your primary care provider within 1 week for recheck. You may use ibuprofen and Tylenol as directed by the bottle for pain relief. For pain unrelieved by ibuprofen and Tylenol you may use hydrocodone. Do not exceed your daily limit of Tylenol. Drink plenty of fluids to stay hydrated. All discharge instructions reviewed with patient and/or family. Voiced understanding. Scripts Hydrocodone Bit/Acetaminophen (Hydrocodone/Acetaminophen 5/325mg Tablet) 1 Tab Tab 1 EACH PO Q4-6HR PRN for PAIN-MODERATE MDD 10 for 3 Days, #10 TAB Prov: CLAUDIA SILVEIRA 09/14/18 CLAUDIA SILVEIRA Sep 14, 2018 19:20
[2018-09-14 19:26] LABS: ALANINE AMINOTRANSFERASE 14 U/L (0-55); ALBUMIN 4.6 GM/DL (3.2-4.5); ALKALINE PHOSPHATASE 72 U/L (40-136); AMYLASE 49 U/L (25-125); BILIRUBIN,TOTAL 0.1 MG/DL (0.1-1.0); BUN/CREATININE RATIO 9; CALCIUM 8.8 MG/DL (8.5-10.1); CARBON DIOXIDE 18 MMOL/L (21-32); CHLORIDE 111 MMOL/L (98-107); CREATININE SERUM 0.78 MG/DL (0.60-1.30); GFR ESTIMATED > 60; GLUCOSE 92 MG/DL (70-105); LIPASE 184 U/L (8-78); POTASSIUM 3.7 MMOL/L (3.6-5.0); SODIUM 141 MMOL/L (135-145); TOTAL PROTEIN 7.7 GM/DL (6.4-8.2)
[2018-09-14] MEDS ORDERED: KETOROLAC 30 MG/ML VIAL IVP ONE (19:45)
[2018-09-14] MEDS ORDERED: HOLD METFORMIN - RECEIVED CONTRAST 20 ML VIAL IV SCH (20:00)
[2018-09-14] MEDS ORDERED: NS 100 ML (IVPB) BAG IV ONE (20:00)
[2018-09-14] MEDS ORDERED: IOHEXOL 350 MG/ML 100 ML (OMNIPAQUE 350) VIAL IV ONE (20:00)
[2018-09-14] MEDS ORDERED: fentaNYL INJECTION 100 MCG/2 ML AMP IVP ONE (20:30)
--- NOTE | 2018-09-14 21:09 | Diagnostic Imaging Report ---
PROCEDURE: CT abdomen and pelvis with contrast. TECHNIQUE: Multiple contiguous axial images were obtained through the abdomen and pelvis after administration of intravenous contrast. Auto Exposure Controls were utilized during the CT exam to meet ALARA standards for radiation dose reduction. INDICATION: Left flank pain x1 week. COMPARISON with 07/25/2014. FINDINGS: A noncontrasted sequence was not obtained. There does appear to be contrast in the arterial phase image within the renal collecting system obscuring detail for possible small kidney stones. No large calculi are seen. There is no hydronephrosis. Delayed images show symmetrical nephrogram effect with good opacification of the collecting systems and ureters which appear normal. Bladder is opacified and appears normal. The lung bases are clear. The liver appears normal. The gallbladder is contracted. Bile ducts are not dilated. The pancreas and spleen are normal. The adrenal glands are normal. The appendix is not dilated. The stomach and small bowel are not distended. The colon shows no evidence of constipation with normal stool and gas pattern. No findings to indicate diverticulitis. The uterus is absent. There are no pelvic masses. No free air or free fluid. There are a few subcentimeter lymph nodes along the right colic gutter as well as in the mesenteric root. There are no bony abnormalities. IMPRESSION: 1. No evidence of obstructive uropathy. 2. Contracted gallbladder with no evidence of bile duct dilatation. 3. Bowel gas pattern appears normal without evidence of appendicitis or inflammatory changes. 4. Mild mesenteric adenitis is noted. Dictated by: Dictated on workstation # [id number]
[2018-09-14] MEDS ORDERED: ACHD5005 PO (21:19)
[2018-09-14] MEDS ORDERED: RX-HYDROCODONE/APAP 5/325 MG #4 TAB PK PO PRN (21:30)
[2018-09-14 21:35] VITALS: BP 110/85
== END 2018-09-14 21:36 | disposition home or self-care (01) ==
LOC: EDUNIT# 18:30 → ER 18:32
DX: I88.0 Nonspecific mesenteric lymphadenitis (principal); F90.9 Attention-deficit hyperactivity disorder, unspecified type; F41.9 Anxiety disorder, unspecified; Z90.710 Acquired absence of both cervix and uterus; Z98.51 Tubal ligation status; Z82.49 Family history of ischemic heart disease and other diseases of the circulatory system
CPT/HCPCS: 36415; 74177; 80053; 81000; 82150; 83690; 85025; 96374; 96375

== ENCOUNTER 2018-09-19 16:50 | Emergency (ER) | payer SELFPAY ==
[~2018-09-19] VITALS: Ht 152.4 cm; Wt 64.9 kg
--- OUTSIDE RECORDS SUMMARY | 2018-09-19 16:57 | XMS REPORT | Continuity of Care Document ---
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 Z98.890 OTHER SPECIFIED POSTPROCEDURAL [place] 09/17/2018 CLAUDIA SILVEIRA Ot F41.9 ANXIETY DISORDER, UNSPECIFIED 09/17/2018 CLAUDIA SILVEIRA Ot F90.9 ATTENTION- DEFICIT HYPERACTIVITY DISORDER 09/17/2018 CLAUDIA SILVEIRA Ot 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 09/17/2018 CLAUDIA SILVEIRA Ot R10.32 LEFT LOWER QUADRANT PAIN 09/17/2018 CLAUDIA SILVEIRA Ot Z82.49 FAMILY HX OF ISCHEM HEART DIS AND OTH DI 09/17/2018 CLAUDIA SILVEIRA Ot Z90.710 ACQUIRED ABSENCE OF BOTH CERVIX AND UTER 09/17/2018 CLAUDIA SILVEIRA Ot Z98.51 TUBAL LIGATION STATUS Procedures Code Description Performed By Performed On Psychiatr Aaron Stevens 03/25/2012 61600 URINE DRUG SCREEN (IN-HOUSE) 03/25/2012 91572 URINE TEST (IN-HOUSE) 09/02/2012 96.49 OTHER INSTILLATION 05/10/2013 74.1 LOW CERVICAL 05/11/2013 [id number] EXTRACTION OF POC, LOW CERVICAL, OPEN AP 07/21/2015 Results Test Result Range Complete blood count (CBC) with automated white blood cell (WBC) differential - 06/25/16 10:12 Blood leukocytes automated count (number/volume) 8.3 10*3/uL 4.3-11.0 Blood erythrocytes automated count (number/volume) 5.05 10*6/uL 4.35-5.85 Venous blood hemoglobin measurement (mass/volume) 14.3 g/dL 11.5-16.0 Blood hematocrit (volume fraction) 43 % 35-52 Automated erythrocyte mean corpuscular volume 85 [foz_us] 80-99 Automated erythrocyte mean corpuscular hemoglobin (mass per erythrocyte) 28 pg 25-34 Automated erythrocyte mean corpuscular hemoglobin concentration measurement (mass/volume) 33 g/dL 32-36 Automated erythrocyte distribution width ratio 13.9 % 10.0- 14.5 Automated blood platelet count (count/volume) 234 10*3/uL 130-400 Automated blood platelet mean volume measurement 9.5 [foz_us] 7.4-10.4 Automated blood neutrophils/100 leukocytes 72 % 42-75 Automated blood lymphocytes/100 leukocytes 19 % 12-44 Blood monocytes/100 leukocytes 7 % 0-12 Automated blood eosinophils/100 leukocytes 1 % 0-10 Automated blood basophils/100 leukocytes 1 % 0-10 Blood neutrophils automated count (number/volume) 6.0 10*3 1.8-7.8 Blood lymphocytes automated count (number/volume) 1.6 10*3 1.0-4.0 Blood monocytes automated count (number/volume) 0.6 10*3 0.0- 1.0 Automated eosinophil count 0.1 10*3/uL 0.0-0.3 Automated blood basophil count (count/volume) 0.0 10*3/uL 0.0-0.1 Blood type T Indirect antibody screen panel - 06/25/16 10:12 ABO+Rh group ABP NRG Blood group antibody screen NEGATIVE NRG Methicillin resistant Staphylococcus aureus (MRSA) screening culture - 06/25/16 10:12 Methicillin resistant Staphylococcus aureus (MRSA) screening culture NEG NRG Urine beta human chorionic gonadotropin (hCG) measurement - 06/28/16 10:40 Urine beta human chorionic gonadotropin (hCG) measurement NEGATIVE NEGATIVE Blood type T Indirect antibody screen panel - 06/28/16 10:46 ABO+Rh group ABP NRG Transfusion band number [id number] NRG Blood group antibody screen NEGATIVE NRG Complete blood count (CBC) with automated white blood cell (WBC) differential - 09/14/18 18:55 Blood leukocytes automated count (number/volume) 9.2 10*3/uL 4.3-11.0 Blood erythrocytes automated count (number/volume) 4.68 10*6/uL 4.35-5.85 Venous blood hemoglobin measurement (mass/volume) 13.4 g/dL 11.5-16.0 Blood hematocrit (volume fraction) 41 % 35-52 Automated erythrocyte mean corpuscular volume 87 [foz_us] 80-99 Automated erythrocyte mean corpuscular hemoglobin (mass per erythrocyte) 29 pg 25-34 Automated erythrocyte mean corpuscular hemoglobin concentration measurement (mass/volume) 33 g/dL 32-36 Automated erythrocyte distribution width ratio 13.4 % 10.0- 14.5 Automated blood platelet count (count/volume) 248 10*3/uL 130-400 Automated blood platelet mean volume measurement 9.5 [foz_us] 7.4-10.4 Automated blood neutrophils/100 leukocytes 67 % 42-75 Automated blood lymphocytes/100 leukocytes 23 % 12-44 Blood monocytes/100 leukocytes 6 % 0-12 Automated blood eosinophils/100 leukocytes 4 % 0-10 Automated blood basophils/100 leukocytes 0 % 0-10 Blood neutrophils automated count (number/volume) 6.2 10*3 1.8-7.8 Blood lymphocytes automated count (number/volume) 2.1 10*3 1.0-4.0 Blood monocytes automated count (number/volume) 0.6 10*3 0.0- 1.0 Automated eosinophil count 0.3 10*3/uL 0.0-0.3 Automated blood basophil count (count/volume) 0.0 10*3/uL 0.0-0.1 Comprehensive metabolic panel - 09/14/18 18:55 Serum or plasma sodium measurement (moles/volume) 141 mmol/L 135-145 Serum or plasma potassium measurement (moles/volume) 3.7 mmol/L 3.6-5.0 Serum or plasma chloride measurement (moles/volume) 111 mmol/L 98-107 Carbon dioxide 18 mmol/L 21-32 Serum or plasma anion gap determination (moles/volume) 12 mmol/L 5-14 Serum or plasma urea nitrogen measurement (mass/volume) 7 mg/dL 7-18 Serum or plasma creatinine measurement (mass/volume) 0.78 mg/dL 0.60-1.30 Serum or plasma urea nitrogen/creatinine mass ratio 9 NRG Serum or plasma creatinine measurement with calculation of estimated glomerular filtration rate > NRG Serum or plasma glucose measurement (mass/volume) 92 mg/dL 70-105 Serum or plasma calcium measurement (mass/volume) 8.8 mg/dL 8.5-10.1 Serum or plasma total bilirubin measurement (mass/volume) 0.1 mg/dL 0.1-1.0 Serum or plasma alkaline phosphatase measurement (enzymatic activity/volume) 72 U/L 40-136 Serum or plasma aspartate aminotransferase measurement (enzymatic activity/volume) 19 U/L 5-34 Serum or plasma alanine aminotransferase measurement (enzymatic activity/volume) 14 U/L 0-55 Serum or plasma protein measurement (mass/volume) 7.7 g/dL 6.4-8.2 Serum or plasma albumin measurement (mass/volume) 4.6 g/dL 3.2-4.5 Serum or plasma amylase measurement (enzymatic activity/volume) - 09/14/18 18:55 Serum or plasma amylase measurement (enzymatic activity/volume) 49 U/L 25-125 Lipase - 09/14/18 18:55 Lipase 184 U/L 8-78 Complete urinalysis with reflex to culture - 09/14/18 18:57 Urine color determination YELLOW NRG Urine clarity determination CLEAR NRG Urine pH measurement by test strip 5 5-9 Specific gravity of urine by test strip 1.005 1.016-1.022 Urine protein assay by test strip, semi-quantitative NEGATIVE NEGATIVE Urine glucose detection by automated test strip NEGATIVE NEGATIVE Erythrocytes detection in urine sediment by light microscopy NEGATIVE NEGATIVE Urine ketones detection by automated test strip NEGATIVE NEGATIVE Urine nitrite detection by test strip NEGATIVE NEGATIVE Urine total bilirubin detection by test strip NEGATIVE NEGATIVE Urine urobilinogen measurement by automated test strip (mass/volume) NORMAL NORMAL Urine leukocyte esterase detection by dipstick NEGATIVE NEGATIVE Automated urine sediment erythrocyte count by microscopy (number/high power field) NONE NRG Automated urine sediment leukocyte count by microscopy (number/high power field) NONE NRG Bacteria detection in urine sediment by light microscopy TRACE NRG Squamous epithelial cells detection in urine sediment by light microscopy 2-5 NRG Crystals detection in urine sediment by light microscopy NONE NRG Casts detection in urine sediment by light microscopy NONE NRG Mucus detection in urine sediment by light microscopy NEGATIVE NRG Complete urinalysis with reflex to culture NO NRG Encounters ACCT No. Visit Date/Time Discharge Status Pt. Type Provider Facility Loc./Unit Complaint [id number] 03/25/2013 15:05:00 03/25/2013 23:59:59 CLS Outpatient COURTNEY ANDREW DDS [id number] 03/25/2012 10:45:00 03/25/2012 23:59:59 [place] [id number] 12/26/2011 13:27:00 12/26/2011 23:59:59 CLS Outpatient TIMOTHY MOSLEY DO [id number] 12/26/2011 13:27:00 12/26/2011 23:59:59 CLS Outpatient [id number] 09/02/2012 09:41:00 Document Registration [id number] 09/14/2018 18:32:00 09/14/2018 21:36:00 DIS Outpatient CLAUDIA SILVEIRA Via [facility] ER L FLANK PAIN [id number] 01/03/2018 11:49:00 01/03/2018 12:40:00 DIS Emergency NITO HERNANDEZ, PARAM Alvarado [facility] ER ARM PAIN/NUMBNESS [id number] 01/02/2018 13:11:00 01/02/2018 15:15:00 DIS Outpatient RAOUL CLAUDIA [facility] ER L ARM PAIN;INJ 2 MONTHS AGO [id number] 10/10/2017 14:17:00 10/10/2017 16:34:00 DIS Emergency FERDINAND HOANG APRN Via [facility] ER FALL/LEFT ARM INJURY [id number] 09/21/2017 16:08:00 09/21/2017 17:55:00 DIS Emergency KISHAN HERNANDEZ, JULEE Tang [facility] ER DENTAL PAIN [id number] 06/14/2017 09:48:00 06/14/2017 10:44:00 DIS Emergency NITO HERNANDEZ, PARAM Alvarado [facility] ER R FOOT TOE PAIN [id number] 01/13/2017 13:40:00 01/13/2017 23:59:59 CLS Outpatient JEANETTE GARCIA MD [facility] RAD LT BREAST PAIN [id number] 11/26/2016 18:25:00 11/26/2016 18:52:00 DIS Emergency HALLE NOBLE DO [facility] ER DENTAL PAIN [id number] 06/28/2016 10:36:00 06/29/2016 12:30:00 DIS Outpatient OLIVE PARKER MD Via [facility] SDC CHRONIC PELVIC PAIN [id number] 06/25/2016 09:55:00 06/25/2016 10:17:00 DIS Outpatient OLIVE PARKER MD [facility] PREOP DUB [id number] 05/07/2016 12:02:00 05/07/2016 23:59:59 CLS Outpatient JEANETTE GARCIA MD [facility] RAD PELVIC PAIN [id number] 01/19/2016 08:47:00 01/19/2016 09:57:00 DIS Emergency ERINN LANGE MD [facility] ER CONSTIPATION [id number] 10/04/2015 15:58:00 10/04/2015 17:02:00 DIS Emergency SCOTT GRIMES [facility] ER SORE THROAT;FEVER;THROAT SWELLING [id number] 08/27/2015 11:44:00 08/27/2015 14:52:00 DIS Emergency SCOTT GRIMES [facility] ER POISON DANIEL [id number] 07/21/2015 06:02:00 07/23/2015 11:50:00 DIS Inpatient OLIVE PARKER MD Via [facility] LDRP PREVIOUS SECTION [id number] 07/17/2015 11:58:00 07/17/2015 12:40:00 DIS Outpatient OLIVE PARKER MD [facility] PREOP PREVIOUS SECTION [id number] 06/09/2015 12:31:00 06/09/2015 13:21:00 DIS Outpatient JEANETTE GARCIA MD Via [facility] WSo FALL/BABY CHECK 30 WKS PREG [id number] 06/04/2015 19:22:00 06/04/2015 20:45:00 DIS Emergency TERRI FARIAS DO Via [facility] ER 30 WKS /FALL/LOWER BACK AND HIP PAIN [id number] 05/10/2015 09:29:00 05/10/2015 23:59:59 CLS Outpatient JEANETTE GARCIA MD [facility] RAD LOW LYING PLACENTA, INADEQUATE HEART SCAN ON [id number] 03/21/2015 14:00:00 03/21/2015 23:59:59 CLS Outpatient JEANETTE GARCIA MD [facility] RAD SURVEY [id number] 02/25/2015 17:58:00 02/25/2015 19:28:00 DIS Emergency HALLE NOBLE DO Via [facility] ER RASH/VOMITING/17 WKS PREG [id number] 12/09/2014 13:27:00 12/09/2014 15:38:00 DIS Emergency FERDINAND HOANG APRN Via [facility] ER VAG DISCHARGE 7 WKS PREG [id number] 07/25/2014 15:19:00 07/25/2014 18:41:00 DIS Emergency SCOTT GRIMES Via [facility] ER ABD PAIN,POSS FOREIGN OBJECT [id number] 05/10/2013 18:00:00 05/13/2013 12:45:00 DIS Inpatient JEANETTE GARCIA MD Via [facility] WS INDUCTION [id number] 03/17/2013 15:47:00 03/17/2013 17:42:00 DIS Emergency SCOTT GRIMES Via [facility] ER DENTAL PAIN [id number] 12/28/2012 10:50:00 12/28/2012 23:59:59 CLS Outpatient JEANETTE GARCIA MD [facility] RAD FUNDAL HEIGHT DISCREPENCY [id number] 11/24/2012 19:59:00 11/24/2012 21:09:00 DIS Emergency SCOTT GRIMES Via [facility] ER LEFT HAND PAIN FROM INJ [id number] 10/26/2012 09:56:00 10/26/2012 23:59:59 CLS Outpatient JEANETTE GARCIA MD [facility] RAD NO HEART TONES [id number] 09/28/2012 09:48:00 09/28/2012 23:59:59 CLS Outpatient JEANETTE GARCIA MD Via [facility] RAD SIZE DATE DISCREPANCY [id number] 01/22/2015 17:49:00 Document Registration [id number] 07/25/2014 15:20:00 Document Registration [id number] 09/19/2011 15:54:00 Document Registration
[2018-09-19] MEDS ORDERED: IOHEXOL 350 MG/ML 100 ML (OMNIPAQUE 350) VIAL IV ONE (17:15)
[2018-09-19] MEDS ORDERED: HOLD METFORMIN - RECEIVED CONTRAST 20 ML VIAL IV SCH (17:15)
[2018-09-19] MEDS ORDERED: NS 100 ML (IVPB) BAG IV ONE (17:15)
[2018-09-19 17:27] LABS: BILIRUBIN,URINE NEGATIVE (NEGATIVE); CLARITY,URINE CLEAR; COLOR,URINE YELLOW; GLUCOSE, URINE (UA) NEGATIVE (NEGATIVE); KETONES,URINE NEGATIVE (NEGATIVE); LEUKOCYTE ESTERASE ,URINE 1+ (NEGATIVE); NITRITE,URINE NEGATIVE (NEGATIVE); PH,URINE 8 (5-9); PROTEIN,URINE NEGATIVE (NEGATIVE); UROBILINOGEN,URINE NORMAL (NORMAL)
[2018-09-19] MEDS ORDERED: KETOROLAC 30 MG/ML VIAL IVP ONE (17:30)
[2018-09-19 17:41] LABS: BASOPHILS % (AUTO) 1 % (0-10); EOSINOPHILS # (AUTO) 0.3 10^3/uL (0.0-0.3); EOSINOPHILS % (AUTO) 3 % (0-10); HEMATOCRIT 42 % (35-52); HEMOGLOBIN 13.8 G/DL (11.5-16.0); LYMPHOCYTES % (AUTO) 25 % (12-44); MEAN CORPUSCULAR HEMOGLOBIN 29 PG (25-34); MEAN CORPUSCULAR HGB CONC 33 G/DL (32-36); MEAN CORPUSCULAR VOLUME 87 FL (80-99); MEAN PLATELET VOLUME 9.5 FL (7.4-10.4); MONOCYTES # (AUTO) 0.5 X 10^3 (0.0-1.0); MONOCYTES % (AUTO) 6 % (0-12); NEUTROPHILS # (AUTO) 5.3 X 10^3 (1.8-7.8); NEUTROPHILS % (AUTO) 65 % (42-75); PLATELET COUNT 213 10^3/uL (130-400); RED CELL DISTRIBUTION WIDTH 13.1 % (10.0-14.5); WHITE BLOOD COUNT 8.1 10^3/uL (4.3-11.0)
[2018-09-19 17:41] LABS: BACTERIA,URINE NEGATIVE /HPF; WBC,URINE RARE /HPF
[2018-09-19 17:42] LABS: AMPHETAMINE SCREEN, URINE NEGATIVE (NEGATIVE); BARBITURATE SCREEN URINE NEGATIVE (NEGATIVE); BENZODIAZEPINES SCREEN URINE POSITIVE (NEGATIVE); CANNABINOID SCREEN, URINE POSITIVE (NEGATIVE); COCAINE SCREEN URINE NEGATIVE (NEGATIVE); METHADONE STAT NEGATIVE (NEGATIVE); METHAMPHETAMINE SCREEN URINE S NEGATIVE (NEGATIVE); OPIATE SCREEN URINE NEGATIVE (NEGATIVE); OXYCODONE STAT NEGATIVE (NEGATIVE); PROPOXYPHENE STAT NEGATIVE (NEGATIVE); TRICYCLIC ANTIDEPRESSANTS SCRE NEGATIVE (NEGATIVE)
[2018-09-19 17:51] LABS: ALANINE AMINOTRANSFERASE 25 U/L (0-55); ALBUMIN 4.7 GM/DL (3.2-4.5); ALKALINE PHOSPHATASE 67 U/L (40-136); AMYLASE 43 U/L (25-125); BILIRUBIN,TOTAL 0.1 MG/DL (0.1-1.0); BUN/CREATININE RATIO 17; CALCIUM 9.3 MG/DL (8.5-10.1); CARBON DIOXIDE 21 MMOL/L (21-32); CHLORIDE 105 MMOL/L (98-107); CREATININE SERUM 0.82 MG/DL (0.60-1.30); GFR ESTIMATED > 60; GLUCOSE 100 MG/DL (70-105); LIPASE 81 U/L (8-78); POTASSIUM 4.2 MMOL/L (3.6-5.0); SODIUM 139 MMOL/L (135-145); TOTAL PROTEIN 8.2 GM/DL (6.4-8.2)
[2018-09-19] MEDS ORDERED: fentaNYL INJECTION 100 MCG/2 ML AMP IVP ONE (18:15)
--- NOTE | 2018-09-19 18:15 | ED Abdominal Pain ---
General Chief Complaint: Abdominal/GI Problems Stated Complaint: PAIN IN LOWER LEFT ABDOMEN, VOMITTING Nursing Triage Note: PT REPORTS WAS SEEN X1 WK AGO FOR ABD PAIN ET DX W/ MESENTERIC ADENITIS. REPORTS SYMPTOMS WORSE TODAY. REPORTS N/V/D AT THIS TIME. Sepsis Screen: No Definite Risk Source of Information: Patient Exam Limitations: No Limitations History of Present Illness Date Seen by Provider: Sep 19, 2018 Time Seen by Provider: 17:00 Initial Comments 28-year-old female who presents to the emergency room with complaints of left lower quadrant abdominal pain. She is known to me from previous visit last week and had diagnosis of mesenteric adenitis. She reports worsening of her pain today but is also out of her pain medication. She reports she has had episodes of nausea vomiting and diarrhea today. Denies fevers. Timing/Duration: 1 Week Associated Symptoms: Nausea/Vomiting Allergies and Home Medications Allergies Coded Allergies: No Known Drug Allergies (Unverified , 09/19/11) Home Medications Alprazolam 0.5 Mg Tablet, 0.5 TAB PO TID PRN for ANXIETY, (Reported) Hydrocodone Bit/Acetaminophen 1 Tab Tab, 1 EACH PO Q4-6HR PRN for PAIN-MODERATE Prescribed by: CLAUDIA SILVEIRA on 09/14/182118 Hydrocodone Bit/Acetaminophen 1 Tab Tab, 1 EACH PO Q4-6HR PRN for PAIN-MODERATE Prescribed by: CLAUDIA SILVEIRA on 09/19/181824 Ondansetron 4 Mg Tab.rapdis, 4 MG PO Q4H PRN for NAUSEA/VOMITING-1ST LINE Prescribed by: CLAUDIA SILVEIRA on 09/19/18 182 Patient Home Medication List Home Medication List Reviewed: Yes Review of Systems Review of Systems Constitutional: see HPI; No chills, No fever Gastrointestinal: See HPI, Abdominal Pain, Diarrhea, Nausea, Vomiting All Other Systems Reviewed Negative Unless Noted: Yes Past Hduslit-Hvlytq-Lryeuu Hx Past Med/Social Hx: Reviewed Nursing Past Med/Soc Hx Patient Social History 2nd Hand Smoke Exposure: No Recent Foreign Travel: No Contact w/Someone Who Travel: No Recent Infectious Disease Expo: No Recent Hopitalizations: No Immunizations Up To Date Tetanus Booster (TDap): Less than 5yrs Date of Influenza Vaccine: Jan 12, 2014 Seasonal Allergies Seasonal Allergies: Yes Past Medical History Surgeries: Yes (WISDOM TEETH, TEAR DUCT, c/s x2) Section, Hysterectomy, Tubal Ligation Respiratory: No Cardiac: No Neurological: No Reproductive Disorders: Yes Female 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 Sexually Transmitted Disease: No Genitourinary: No Gastrointestinal: No Musculoskeletal: No Endocrine: No (gestational diet controlled) HEENT: No Cancer: No Psychosocial: Yes ADD/ADHD, Anxiety Integumentary: No Blood Disorders: No Family Medical History Reviewed Nursing Family Hx Arthritis 19 MOTHER Cardiovascular disease 19 FATHER 19 MOTHER Diabetes mellitus 19 FATHER 19 MOTHER Hypertension 19 FATHER 19 MOTHER Myocardial infarction 19 FATHER 19 MOTHER Thyroid disease 19 MOTHER G8 SISTER No Pertinent Family Hx Physical Exam Vital Signs Vital Signs - First Documented 09/19/18 16:54 Temp 98.2 Pulse 116 Resp 20 B/P (MAP) 133/101 (112) Pulse Ox 95 O2 Delivery Room Air Capillary Refill : Less Than 3 Seconds Height/Weight/BMI Height: 5'0" Weight: 143lbs. 8.0oz. 64.849540ab; 24.7 BMI Method:Stated General Appearance: WD/WN, no apparent distress Respiratory: chest non-tender, lungs clear, normal breath sounds, no respiratory distress, no accessory muscle use Cardiovascular: normal peripheral pulses, regular rate, rhythm, no edema, no gallop, no JVD, no murmur Gastrointestinal: normal bowel sounds, soft, no organomegaly, no pulsatile mass, tenderness (left lower quadrant tenderness) Extremities: normal capillary refill Neurologic/Psychiatric: alert, normal mood/affect, oriented x 3 Skin: normal color, warm/dry Progress/Results/Core Measures Results/Orders Lab Results Laboratory Tests Test 09/19/18 17:21 09/19/18 17:25 Range/Units Urine Color YELLOW Urine Clarity CLEAR Urine pH 8 5-9 Urine Specific [place] 1.015 L 1.016-1.022 Urine Protein NEGATIVE NEGATIVE Urine Glucose (UA) NEGATIVE NEGATIVE Urine Ketones NEGATIVE NEGATIVE Urine Nitrite NEGATIVE NEGATIVE Urine Bilirubin NEGATIVE NEGATIVE Urine Urobilinogen NORMAL NORMAL MG/DL Urine Leukocyte Esterase 1+ H NEGATIVE Urine RBC (Auto) NEGATIVE NEGATIVE Urine RBC NONE /HPF Urine WBC RARE /HPF Urine Squamous Epithelial Cells 2-5 /HPF Urine Crystals NONE /LPF Urine Bacteria NEGATIVE /HPF Urine Casts NONE /LPF Urine Mucus NEGATIVE /LPF Urine Culture Indicated NO Urine Opiates Screen NEGATIVE NEGATIVE Urine Oxycodone Screen NEGATIVE NEGATIVE Urine Methadone Screen NEGATIVE NEGATIVE Urine Propoxyphene Screen NEGATIVE NEGATIVE Urine Barbiturates Screen NEGATIVE NEGATIVE Ur Tricyclic Antidepressants Screen NEGATIVE NEGATIVE Urine Phencyclidine Screen NEGATIVE NEGATIVE Urine Amphetamines Screen NEGATIVE NEGATIVE Urine Methamphetamines Screen NEGATIVE NEGATIVE Urine Benzodiazepines Screen POSITIVE H NEGATIVE Urine Cocaine Screen NEGATIVE NEGATIVE Urine Cannabinoids Screen POSITIVE H NEGATIVE White Blood Count 8.1 4.3-11.0 10^3/uL Red Blood Count 4.80 4.35-5.85 10^6/uL Hemoglobin 13.8 11.5-16.0 G/DL Hematocrit 42 35-52 % Mean Corpuscular Volume 87 80-99 FL Mean Corpuscular Hemoglobin 29 25-34 PG Mean Corpuscular Hemoglobin Concent 33 32-36 G/DL Red Cell Distribution Width 13.1 10.0-14.5 % Platelet Count 213 130-400 10^3/uL Mean Platelet Volume 9.5 7.4-10.4 FL Neutrophils (%) (Auto) 65 42-75 % Lymphocytes (%) (Auto) 25 12-44 % Monocytes (%) (Auto) 6 0-12 % Eosinophils (%) (Auto) 3 0-10 % Basophils (%) (Auto) 1 0-10 % Neutrophils # (Auto) 5.3 1.8-7.8 X 10^3 Lymphocytes # (Auto) 2.0 1.0-4.0 X 10^3 Monocytes # (Auto) 0.5 0.0-1.0 X 10^3 Eosinophils # (Auto) 0.3 0.0-0.3 10^3/uL Basophils # (Auto) 0.0 0.0-0.1 10^3/uL Sodium Level 139 135-145 MMOL/L Potassium Level 4.2 3.6-5.0 MMOL/L Chloride Level 105 98-107 MMOL/L Carbon Dioxide Level 21 21-32 MMOL/L Anion Gap 13 5-14 MMOL/L Blood Urea Nitrogen 14 7-18 MG/DL Creatinine 0.82 0.60-1.30 MG/DL Estimat Glomerular Filtration Rate > 60 BUN/Creatinine Ratio 17 Glucose Level 100 70-105 MG/DL Calcium Level 9.3 8.5-10.1 MG/DL Corrected Calcium 8.5-10.1 MG/DL Total Bilirubin 0.1 0.1-1.0 MG/DL Aspartate Amino Transf (AST/SGOT) 27 5-34 U/L Alanine Aminotransferase (ALT/SGPT) 25 0-55 U/L Alkaline Phosphatase 67 40-136 U/L Total Protein 8.2 6.4-8.2 GM/DL Albumin 4.7 H 3.2-4.5 GM/DL Amylase Level 43 25-125 U/L Lipase 81 H 8-78 U/L My Orders Orders - CLAUDIA SILVEIRA Comprehensive Metabolic Panel (09/19/18 17:00) Lipase (09/19/18 17:00) Amylase (09/19/18 17:00) Ua Culture If Indicated (09/19/18 17:00) Ed Iv/Invasive Line Start (09/19/18 17:00) Cbc With Automated Diff (09/19/18 17:00) Ct Abdomen/Pelvis W (09/19/18 17:00) Iohexol Injection (Omnipaque 350 Mg/Ml 1 (09/19/18 17:15) Received Contrast (Hold Metformin- Contr (09/19/18 17:15) Ns (Ivpb) (Sodium Chloride 0.9% Ivpb Bag (09/19/18 17:15) Drug Screen Stat (Urine) (09/19/18 17:14) Ketorolac Injection (Toradol Injection) (09/19/18 17:30) Fentanyl Injection (Sublimaze Injection (09/19/18 18:15) Medications Given in ED Vital Signs/I&O 09/19/18 09/19/18 16:54 18:55 Temp 98.2 Pulse 116 94 Resp 20 20 B/P (MAP) 133/101 (112) 131/94 (106) Pulse Ox 95 98 O2 Delivery Room Air Room Air Blood Pressure Mean: 112 Departure Impression Primary Impression: Mesenteric adenitis Disposition: 01 HOME, SELF-CARE Condition: Stable/Unchanged Departure-Patient Inst. Decision time for Depature: 18:23 Referrals: [facility] (PCP/Family) Primary Care Physician Patient Instructions: Mesenteric Lymphadenitis (DC) Add. Discharge Instructions: Take medications as directed. Drink plenty of fluids to stay hydrated. You may use [id number] antidiarrheals as directed by the bottle. Follow-up with your primary care provider within 1 week for recheck. Return back to the emergency room for worsening symptoms or concerns as needed. All discharge instructions reviewed with patient and/or family. Voiced understanding. Scripts Hydrocodone Bit/Acetaminophen (Hydrocodone/Acetaminophen 5/325mg Tablet) 1 Tab Tab 1 EACH PO Q4-6HR PRN for PAIN-MODERATE MDD 10 for 3 Days, #10 TAB Prov: CLAUDIA SILVEIRA 09/19/18 Ondansetron (Ondansetron Odt) 4 Mg Tab.rapdis 4 MG PO Q4H PRN for NAUSEA/VOMITING-1ST LINE, #20 TAB Prov: CLAUDIA SILVEIRA 09/19/18 CLAUDIA SILVEIRA Sep 19, 2018 18:15
--- NOTE | 2018-09-19 18:19 | Diagnostic Imaging Report ---
PROCEDURE: CT abdomen and pelvis with contrast. TECHNIQUE: Multiple contiguous axial images were obtained through the abdomen and pelvis after administration of intravenous contrast. Auto Exposure Controls were utilized during the CT exam to meet ALARA standards for radiation dose reduction. INDICATION: Abdominal pain. FINDINGS: The previous CT abdomen/pelvis exam of 09/14/2018 noted mild mesenteric adenitis. On this exam, there are still a few nodes in the right lower quadrant. The appendix was not particularly well-visualized but there are no indirect signs of acute appendicitis. There may be a few diverticula in the sigmoid and descending colon but there is no evidence for acute diverticulitis either. The uterus is surgically absent. The urinary bladder is grossly unremarkable. The liver, spleen, pancreas, adrenals, kidneys, gallbladder, aorta and inferior vena cava show no sign of an acute abnormality. The stomach is partially filled with particulate matter and difficult to assess. The lung bases are clear. The bone windows show no evidence for a fracture or for a destructive lesion. IMPRESSION: 1. There are still a few small nodes in the right lower quadrant. These are nonspecific but could be related to mild mesenteric adenitis. 2. The overall appearance of the abdomen and pelvis has not changed significantly otherwise. No new abnormality has developed. Dictated by: Dictated on workstation # [id number]
[2018-09-19] MEDS ORDERED: ONDA4TAB11 PO (18:25)
[2018-09-19] MEDS ORDERED: ACHD5005 PO (18:25)
[2018-09-19 18:55] VITALS: BP 131/94
== END 2018-09-19 18:55 | disposition home or self-care (01) ==
LOC: EDUNIT# 16:50 → ER 16:52
DX: I88.0 Nonspecific mesenteric lymphadenitis (principal); F90.9 Attention-deficit hyperactivity disorder, unspecified type; F41.9 Anxiety disorder, unspecified; Z82.49 Family history of ischemic heart disease and other diseases of the circulatory system; Z98.890 Other specified postprocedural states; Z90.710 Acquired absence of both cervix and uterus; Z98.51 Tubal ligation status
CPT/HCPCS: 36415; 74177; 80053; 80306; 81000; 82150; 83690; 85025; 96374

== ENCOUNTER 2018-10-07 17:52 | Emergency (ER) | payer SELFPAY ==
[~2018-10-07] VITALS: Ht 152.4 cm; Wt 65.8 kg
[~2018-10-07 17:52] MED LIST changes: +ONDA4TAB11 PO
[2018-10-07] MEDS ORDERED: HYOSCYAMINE 0.125 MG (LEVSIN) TAB PO ONE (18:30)
[2018-10-07] MEDS ORDERED: LACTATED RINGERS 1,000 ML IV SCH (18:30)
[2018-10-07] MEDS ORDERED: KETOROLAC 30 MG/ML VIAL IVP ONE (18:30)
[2018-10-07] MEDS ORDERED: DICY20TA10 PO (18:48)
--- NOTE | 2018-10-07 18:48 | ED GI ---
General Chief Complaint: Abdominal/GI Problems Stated Complaint: ABD PAIN Nursing Triage Note: PT AMBULATES TO ER WITH COMPLAINTS OF ABDM PAIN OVER THE PAST MONTH. SAYS SHE WAS HERE ON THE AND HAS RAN OUT OF HER PAIN MEDS. STATES SHE CAN'T GET AN APPT AT [facility] UNTIL 10/26. Sepsis Screen: No Definite Risk Source of Information: Patient Exam Limitations: No Limitations History of Present Illness Date Seen by Provider: Oct 07, 2018 Time Seen by Provider: 18:45 Initial Comments To ER with ongoing left lower quadrant abdominal pain. She was here on September 14 and September 19. She has been taking hydrocodone intermittently for this abdominal pain. She has an appointment with [facility] on 10/26/18. The pain is localized in the LEFT lower quadrant. She was diagnosed with mesenteric adenitis as there were a few lymph nodes noted on CT in the RIGHT lower quadrant, but she does not have pain in this location currently. History of hysterectomy, bilateral salpingectomy and left oophorectomy in 2017. No dysuria. She does have a history of diarrhea as well. No fevers or chills. Timing/Duration: 1-2 Days Severity/Quality: Moderate Location: LLQ Radiation: No Radiation, LLQ Allergies and Home Medications Allergies Coded Allergies: No Known Drug Allergies (Unverified , 09/19/11) Home Medications Alprazolam 0.5 Mg Tablet, 0.5 TAB PO TID PRN for ANXIETY, (Reported) Dicyclomine HCl 20 Mg Tablet, 20 MG PO AC Prescribed by: FERDINAND HOANG on 10/07/18 1848 Hydrocodone Bit/Acetaminophen 1 Tab Tab, 1 EACH PO Q4-6HR PRN for PAIN-MODERATE Prescribed by: CLAUDIA SILVEIRA on 09/14/182118 Hydrocodone Bit/Acetaminophen 1 Tab Tab, 1 EACH PO Q4-6HR PRN for PAIN-MODERATE Prescribed by: CLAUDIA SILVEIRA on 09/19/181824 Ondansetron 4 Mg Tab.rapdis, 4 MG PO Q4H PRN for NAUSEA/VOMITING-1ST LINE Prescribed by: CLAUDIA SILVEIRA on 09/19/181824 Patient Home Medication List Home Medication List Reviewed: Yes Review of Systems Review of Systems Constitutional: see HPI EENTM: No Symptoms Reported Respiratory: No Symptoms Reported Cardiovascular: No Symptoms Reported Gastrointestinal: See HPI, Abdominal Pain, Diarrhea Genitourinary: No Symptoms Reported Musculoskeletal: no symptoms reported Skin: no symptoms reported Psychiatric/Neurological: No Symptoms Reported Endocrine: No Symptoms Reported Past Hevvzds-Xbnbhh-Njrliw Hx Patient Social History 2nd Hand Smoke Exposure: No Recent Foreign Travel: No Contact w/Someone Who Travel: No Recent Infectious Disease Expo: No Recent Hopitalizations: No Immunizations Up To Date Tetanus Booster (TDap): Less than 5yrs Date of Influenza Vaccine: Jan 12, 2014 Seasonal Allergies Seasonal Allergies: Yes Past Medical History Surgeries: Yes (WISDOM TEETH, TEAR DUCT, c/s x2) Section, Hysterectomy, Tubal Ligation Respiratory: No Cardiac: No Neurological: No : No Reproductive Disorders: Yes Female Reproductive Disorders: Denies [place] History: Hysterectomy Sexually Transmitted Disease: No Genitourinary: No Gastrointestinal: No Musculoskeletal: No Endocrine: No (gestational diet controlled) HEENT: No Cancer: No Psychosocial: Yes ADD/ADHD, Anxiety Integumentary: No Blood Disorders: No Family Medical History Arthritis 19 MOTHER Cardiovascular disease 19 FATHER 19 MOTHER Diabetes mellitus 19 FATHER 19 MOTHER Hypertension 19 FATHER 19 MOTHER Myocardial infarction 19 FATHER 19 MOTHER Thyroid disease 19 MOTHER G8 SISTER No Pertinent Family Hx Physical Exam Vital Signs Vital Signs - First Documented 10/07/18 17:58 Temp 98.6 Pulse 115 Resp 18 B/P (MAP) 140/84 (102) Pulse Ox 98 O2 Delivery Room Air Capillary Refill : Less Than 3 Seconds Height/Weight/BMI Height: 5'0" Weight: 145lbs. 8.0oz. 65.060171eb; 24.7 BMI Method:Stated General Appearance: WD/WN, no apparent distress Respiratory: no respiratory distress, no accessory muscle use Gastrointestinal: normal bowel sounds, soft, tenderness (LLQ) Extremities: normal range of motion, non-tender Neurologic/Psychiatric: alert, normal mood/affect, oriented x 3 Skin: normal color, warm/dry Progress/Results/Core Measures Results/Orders Lab Results Laboratory Tests Test 10/07/18 18:40 Range/Units White Blood Count 10.0 4.3-11.0 10^3/uL Red Blood Count 4.57 4.35-5.85 10^6/uL Hemoglobin 13.2 11.5-16.0 G/DL Hematocrit 39 35-52 % Mean Corpuscular Volume 85 80-99 FL Mean Corpuscular Hemoglobin 29 25-34 PG Mean Corpuscular Hemoglobin Concent 34 32-36 G/DL Red Cell Distribution Width 12.5 10.0-14.5 % Platelet Count 199 130-400 10^3/uL Mean Platelet Volume 9.4 7.4-10.4 FL Neutrophils (%) (Auto) 69 42-75 % Lymphocytes (%) (Auto) 25 12-44 % Monocytes (%) (Auto) 4 0-12 % Eosinophils (%) (Auto) 1 0-10 % Basophils (%) (Auto) 0 0-10 % Neutrophils # (Auto) 6.9 1.8-7.8 X 10^3 Lymphocytes # (Auto) 2.5 1.0-4.0 X 10^3 Monocytes # (Auto) 0.4 0.0-1.0 X 10^3 Eosinophils # (Auto) 0.1 0.0-0.3 10^3/uL Basophils # (Auto) 0.0 0.0-0.1 10^3/uL Urine Color YELLOW Urine Clarity CLEAR Urine pH 6 5-9 Urine Specific [place] 1.005 L 1.016-1.022 Urine Protein NEGATIVE NEGATIVE Urine Glucose (UA) NEGATIVE NEGATIVE Urine Ketones NEGATIVE NEGATIVE Urine Nitrite NEGATIVE NEGATIVE Urine Bilirubin NEGATIVE NEGATIVE Urine Urobilinogen NORMAL NORMAL MG/DL Urine Leukocyte Esterase NEGATIVE NEGATIVE Urine RBC (Auto) NEGATIVE NEGATIVE Urine RBC NONE /HPF Urine WBC NONE /HPF Urine Squamous Epithelial Cells 0-2 /HPF Urine Crystals NONE /LPF Urine Bacteria NEGATIVE /HPF Urine Casts NONE /LPF Urine Mucus NEGATIVE /LPF Urine Culture Indicated NO Sodium Level 138 135-145 MMOL/L Potassium Level 3.6 3.6-5.0 MMOL/L Chloride Level 107 98-107 MMOL/L Carbon Dioxide Level 17 L 21-32 MMOL/L Anion Gap 14 5-14 MMOL/L Blood Urea Nitrogen 10 7-18 MG/DL Creatinine 0.73 0.60-1.30 MG/DL Estimat Glomerular Filtration Rate > 60 BUN/Creatinine Ratio 14 Glucose Level 117 H 70-105 MG/DL Calcium Level 8.5 8.5-10.1 MG/DL Corrected Calcium 8.1 L 8.5-10.1 MG/DL Total Bilirubin 0.2 0.1-1.0 MG/DL Aspartate Amino Transf (AST/SGOT) 17 5-34 U/L Alanine Aminotransferase (ALT/SGPT) 15 0-55 U/L Alkaline Phosphatase 71 40-136 U/L Total Protein 7.8 6.4-8.2 GM/DL Albumin 4.5 3.2-4.5 GM/DL Serum Test, Qualitative NEGATIVE NEGATIVE Urine Opiates Screen NEGATIVE NEGATIVE Urine Oxycodone Screen NEGATIVE NEGATIVE Urine Methadone Screen NEGATIVE NEGATIVE Urine Propoxyphene Screen NEGATIVE NEGATIVE Urine Barbiturates Screen NEGATIVE NEGATIVE Ur Tricyclic Antidepressants Screen NEGATIVE NEGATIVE Urine Phencyclidine Screen NEGATIVE NEGATIVE Urine Amphetamines Screen NEGATIVE NEGATIVE Urine Methamphetamines Screen NEGATIVE NEGATIVE Urine Benzodiazepines Screen POSITIVE H NEGATIVE Urine Cocaine Screen NEGATIVE NEGATIVE Urine Cannabinoids Screen NEGATIVE NEGATIVE My Orders Orders - FERDINAND HOANG [employer]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 Cbc With Automated Diff (10/07/18 18:17) Comprehensive Metabolic Panel (10/07/18 18:17) Ua Culture If Indicated (10/07/18 18:17) Drug Screen Stat (Urine) (10/07/18 18:17) Hcg,Qualitative Serum (10/07/18 18:17) Ed Iv/Invasive Line Start (10/07/18 18:17) Lactated Ringers (Lr 1000 Ml Iv Solution (10/07/18 18:30) Ketorolac Injection (Toradol Injection) (10/07/18 18:30) Hyoscyamine Sl Tablet (Levsin Sl Tablet) (10/07/18 18:30) Dicyclomine Capsule (Bentyl Capsule) (10/07/18 19:30) Medications Given in ED Current Medications Medications Dose Ordered Sig/Abdi Route Start Time Stop Time Status Last Admin Dose Admin Hyoscyamine Sulfate 0.25 mg ONCE ONCE PO 10/07/18 18:30 10/07/18 18:31 DC 10/07/18 18:42 0.25 MG Ketorolac Tromethamine 30 mg ONCE ONCE IVP 10/07/18 18:30 10/07/18 18:31 DC 10/07/18 18:42 30 MG Vital Signs/I&O 10/07/18 17:58 Temp 98.6 Pulse 115 Resp 18 B/P (MAP) 140/84 (102) Pulse Ox 98 O2 Delivery Room Air Blood Pressure Mean: 102 Departure Communication (Admissions) 1930-Reports persistent pain. Asking for more pain medication. Bentyl ordered. Impression Primary Impression: LLQ abdominal pain Additional Impression: Diarrhea Qualified Codes: R19.7 - Diarrhea, unspecified Disposition: HOME, SELF-CARE Condition: Stable Departure-Patient Inst. Decision time for Depature: 18:47 Referrals: [facility] (PCP) Primary Care Physician TERRI BOATENG (Family) Primary Care Physician Patient Instructions: Acute Abdomen (Belly Pain), Adult (DC) Add. Discharge Instructions: 1. Keep your appointment with primary care 2. Return to ER for any concerns 3. Medication as directed.Hydrocodone that you were on can be very addicting and this new medication represents a safer option. All discharge instructions reviewed with patient and/or family. Voiced understanding. Scripts Dicyclomine HCl (Dicyclomine HCl) 20 Mg Tablet 20 MG PO AC, #30 TAB Prov: FERDINAND HOANG APRN 10/07/18 Work/School Note: Work Release Form Date Seen in the Emergency Department: Oct 07, 2018 Return to Work: Oct 08, 2018 FERDINAND HOANG APRN Oct 07, 2018 18:48
[2018-10-07 18:51] LABS: BASOPHILS % (AUTO) 0 % (0-10); EOSINOPHILS # (AUTO) 0.1 10^3/uL (0.0-0.3); EOSINOPHILS % (AUTO) 1 % (0-10); HEMATOCRIT 39 % (35-52); HEMOGLOBIN 13.2 G/DL (11.5-16.0); LYMPHOCYTES # (AUTO) 2.5 X 10^3 (1.0-4.0); LYMPHOCYTES % (AUTO) 25 % (12-44); MEAN CORPUSCULAR HEMOGLOBIN 29 PG (25-34); MEAN CORPUSCULAR HGB CONC 34 G/DL (32-36); MEAN CORPUSCULAR VOLUME 85 FL (80-99); MEAN PLATELET VOLUME 9.4 FL (7.4-10.4); MONOCYTES # (AUTO) 0.4 X 10^3 (0.0-1.0); MONOCYTES % (AUTO) 4 % (0-12); NEUTROPHILS # (AUTO) 6.9 X 10^3 (1.8-7.8); NEUTROPHILS % (AUTO) 69 % (42-75); PLATELET COUNT 199 10^3/uL (130-400); RED CELL DISTRIBUTION WIDTH 12.5 % (10.0-14.5)
[2018-10-07 19:04] LABS: BILIRUBIN,URINE NEGATIVE (NEGATIVE); CLARITY,URINE CLEAR; COLOR,URINE YELLOW; GLUCOSE, URINE (UA) NEGATIVE (NEGATIVE); KETONES,URINE NEGATIVE (NEGATIVE); LEUKOCYTE ESTERASE ,URINE NEGATIVE (NEGATIVE); NITRITE,URINE NEGATIVE (NEGATIVE); PH,URINE 6 (5-9); PROTEIN,URINE NEGATIVE (NEGATIVE); UROBILINOGEN,URINE NORMAL (NORMAL)
[2018-10-07 19:13] LABS: ALANINE AMINOTRANSFERASE 15 U/L (0-55); ALBUMIN 4.5 GM/DL (3.2-4.5); ALKALINE PHOSPHATASE 71 U/L (40-136); BILIRUBIN,TOTAL 0.2 MG/DL (0.1-1.0); BUN/CREATININE RATIO 14; CALCIUM 8.5 MG/DL (8.5-10.1); CARBON DIOXIDE 17 MMOL/L (21-32); CHLORIDE 107 MMOL/L (98-107); CREATININE SERUM 0.73 MG/DL (0.60-1.30); GFR ESTIMATED > 60; GLUCOSE 117 MG/DL (70-105); POTASSIUM 3.6 MMOL/L (3.6-5.0); SODIUM 138 MMOL/L (135-145); TOTAL PROTEIN 7.8 GM/DL (6.4-8.2)
[2018-10-07 19:18] LABS: AMPHETAMINE SCREEN, URINE NEGATIVE (NEGATIVE); BARBITURATE SCREEN URINE NEGATIVE (NEGATIVE); BENZODIAZEPINES SCREEN URINE POSITIVE (NEGATIVE); CANNABINOID SCREEN, URINE NEGATIVE (NEGATIVE); COCAINE SCREEN URINE NEGATIVE (NEGATIVE); METHADONE STAT NEGATIVE (NEGATIVE); METHAMPHETAMINE SCREEN URINE S NEGATIVE (NEGATIVE); OPIATE SCREEN URINE NEGATIVE (NEGATIVE); OXYCODONE STAT NEGATIVE (NEGATIVE); PROPOXYPHENE STAT NEGATIVE (NEGATIVE); TRICYCLIC ANTIDEPRESSANTS SCRE NEGATIVE (NEGATIVE)
[2018-10-07 19:23] LABS: BACTERIA,URINE NEGATIVE /HPF; SQUAMOUS EPITHELIAL CELL,UR 0-2 /HPF
[2018-10-07] MEDS ORDERED: DICYCLOMINE 10 MG (BENTYL) CAP PO SCH (19:30)
[2018-10-07 19:53] VITALS: BP 130/80
== END 2018-10-07 19:53 | disposition home or self-care (01) ==
LOC: EDUNIT# 17:52 → ER 17:53
DX: R10.32 Left lower quadrant pain (principal); R19.7 Diarrhea, unspecified; F41.9 Anxiety disorder, unspecified; F90.9 Attention-deficit hyperactivity disorder, unspecified type; Z91.14 Patient's other noncompliance with medication regimen; Z90.710 Acquired absence of both cervix and uterus; Z90.722 Acquired absence of ovaries, bilateral; Z98.51 Tubal ligation status; Z82.49 Family history of ischemic heart disease and other diseases of the circulatory system
CPT/HCPCS: 36415; 80053; 80306; 81000; 84703; 85025; 96374

== ENCOUNTER 2020-09-02 21:42 | Emergency (ER) | payer SELFPAY ==
[~2020-09-02] VITALS: Ht 152.4 cm; Wt 63.5 kg
[~2020-09-02 21:42] MED LIST changes: +DICY20TA10 PO; -LIDO15SO2 MM; +LIDO20SO23 MM; -OXYC-465 PO; +OXYC-556 PO; -TRAM50TA2 PO
[2020-09-02 21:58] LABS: BILIRUBIN,URINE NEGATIVE (NEGATIVE); CLARITY,URINE CLEAR; COLOR,URINE YELLOW; GLUCOSE, URINE (UA) NEGATIVE (NEGATIVE); KETONES,URINE NEGATIVE (NEGATIVE); LEUKOCYTE ESTERASE ,URINE NEGATIVE (NEGATIVE); NITRITE,URINE NEGATIVE (NEGATIVE); PROTEIN,URINE NEGATIVE (NEGATIVE)
--- NOTE | 2020-09-02 22:01 | ED GU-Female ---
General Stated Complaint: PELVIC PAIN/PAINFUL URINATION Source: patient (DIFFICULT HISTORIAN--SPEECH RAPID, ERRATIC AND SOMEWHAT MUMBLED, DIFFICULT TO KEEP ON SUBJECT) History of Present Illness Date Seen by Provider: September 02, 2020 Time Seen by Provider: 21:50 Initial Comments PT ARRIVES VIA POV FROM HOME C/O SUPRAPUBIC PAIN --DIFFICULT TO DETERMINE HOW LONG IT HAS BEEN GOING ON, AT ONE POINT PT STATES IT HAS BEEN GOING ON FOR A COUPLE OF WEEKS AND THEN PT ALSO STATES IT JUST STARTED TODAY NO RADIATION OF PAIN STATES TODAY SHE HAS HAD SOME NAUSEA AND VOMITED DUE TO PAIN NO FEVER C/O MUCH PAIN / BURNING ON URINATION NO FLANK PAIN NO VAGINAL DISCHARGE PT DENIES HISTORY OF SIMILAR HOWEVER, ON REVIEW OF OLD RECORDS, PT HAS HAD HYSTERECTOMY FOR CHRONIC PELVIC PAIN IN 2017; PT HAS HAD MULTIPLE PREVIOUS ER VISITS FOR ABDOMINAL PAIN COMPLAINTS, WELL VARIOUS OTHER PAIN COMPLAINTS HAS NOT TAKEN ANYTHING FOR PAIN AT ANY TIME STATES SHE HAS HAD "A COUPLE OF BEERS" TONIGHT PT HAS HAD HYSTERECTOMY PCP: [facility] Allergies and Home Medications Allergies Coded Allergies: No Known Drug Allergies (Unverified , 09/19/11) Home Medications Alprazolam 0.5 Mg Tablet, 0.5 TAB PO TID PRN for ANXIETY, (Reported) Dicyclomine HCl 20 Mg Tablet, 20 MG PO AC Prescribed by: FERDINAND HOANG on 10/07/18 1848 Hydrocodone Bit/Acetaminophen 1 Tab Tab, 1 EACH PO Q4-6HR PRN for PAIN-MODERATE Prescribed by: CLAUDIA SILVEIRA on 09/14/189 Hydrocodone Bit/Acetaminophen 1 Tab Tab, 1 EACH PO Q4-6HR PRN for PAIN-MODERATE Prescribed by: CLAUDIA SILVEIRA on 09/19/18 182 Naproxen 500 Mg Tablet., 500 MG PO BID Prescribed by: HALLE NOBLE on 09/02/20 2341 Ondansetron 4 Mg Tab.rapdis, 4 MG PO Q4H PRN for NAUSEA/VOMITING-1ST LINE Prescribed by: CLAUDIA SILVEIRA on 09/19/18 1825 Pantoprazole Sodium 40 Mg Tablet.dr, 40 MG PO DAILY Prescribed by: HALLE NOBLE on 09/02/20 2341 Phenazopyridine HCl 200 Mg Tablet, 1 TAB PO TID Prescribed by: HALLE NOBLE on 09/03/20 0548 Patient Home Medication List Home Medication List Reviewed: Yes Review of Systems Review of Systems Constitutional: no symptoms reported Respiratory: no symptoms reported Cardiovascular: no symptoms reported Gastrointestinal: abdominal pain (SUPRAPUBIC PAIN ), nausea, vomiting Genitourinary: see HPI, burning; denies discharge; dysuria, frequency; denies flank pain Musculoskeletal: no symptoms reported; No back pain Skin: no symptoms reported Psychiatric/Neurological: No Symptoms Reported Endocrine: No Symptoms Reported Hematologic/Lymphatic: No Symptoms Reported Past Qcwopvp-Dtxwst-Dewjyd Hx Past Med/Social Hx: Reviewed and Corrections made Patient Social History Alcohol Use: Regular Use Drug of Choice: THC Smoking Status: Never a Smoker 2nd Hand Smoke Exposure: No Recent Hopitalizations: No Substance type: Marijuana Immunizations Up To Date Tetanus Booster (TDap): Less than 5yrs Date of Influenza Vaccine: Jan 12, 2014 Seasonal Allergies Seasonal Allergies: Yes Past Medical History Surgeries: Yes (WISDOM TEETH, TEAR DUCT, c/s x2;HYST/USO) Section, Hysterectomy, Oophorectomy, Tubal Ligation Respiratory: No Cardiac: No Neurological: No 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 Sexually Transmitted Disease: No Genitourinary: No Gastrointestinal: No Musculoskeletal: No Endocrine: No (gestational diet controlled) HEENT: No Cancer: No Psychosocial: Yes ADD/ADHD, Anxiety Integumentary: No Blood Disorders: No Family Medical History Arthritis 19 MOTHER Cardiovascular disease 19 FATHER 19 MOTHER Diabetes mellitus 19 FATHER 19 MOTHER Hypertension 19 FATHER 19 MOTHER Myocardial infarction 19 FATHER 19 MOTHER Thyroid disease 19 MOTHER G8 SISTER No Pertinent Family Hx Physical Exam Vital Signs Vital Signs - First Documented 09/02/20 09/03/20 21:49 00:05 Temp 36.0 Pulse 98 Resp 20 B/P (MAP) 145/91 (109) Pulse Ox 97 O2 Delivery Room Air Capillary Refill : Height, Weight, BMI Height: 5'0" Weight: 145lbs. 8.0oz. 65.106295kf; 24.7 BMI Method:Stated General Appearance: WD/WN, no apparent distress, other (PT WITH CONSTANT MOVEMENTS; RAPID/VERY ERRATIC/SOMEWHAT MUMBLED SPEECH; DIFFICULT TO KEEP ON S UBJECT) Cardiovascular: regular rate, rhythm, no murmur Respiratory: normal breath sounds, no respiratory distress, no accessory muscle use Gastrointestinal: soft; No distended, No guarding, No rebound; tenderness (DIFFUSE LOWER ABDOMINAL TENDERNESS. MILD BILATERAL FLANK TENDERNESS); No hernia, No mass Back: normal inspection, no CVA tenderness Extremities: normal inspection Neurologic/Psychiatric: no motor/sensory deficits, alert, oriented x 3 Skin: normal color, warm/dry; No rash Progress/Results/Core Measures Suspected Sepsis SIRS Temperature: Pulse: Respiratory Rate: Laboratory Tests 09/02/20 22:19: White Blood Count 8.5 Blood Pressure / Mean: Laboratory Tests 09/02/20 22:19: Creatinine 0.74, Platelet Count 199, Total Bilirubin 0.3 Results/Orders Lab Results Laboratory Tests Test 09/02/20 21:52 09/02/20 22:19 Range/Units Urine Color YELLOW Urine Clarity CLEAR Urine pH 6.0 5-9 Urine Specific [place] 1.010 L 1.016-1.022 Urine Protein NEGATIVE NEGATIVE Urine Glucose (UA) NEGATIVE NEGATIVE Urine Ketones NEGATIVE NEGATIVE Urine Nitrite NEGATIVE NEGATIVE Urine Bilirubin NEGATIVE NEGATIVE Urine Urobilinogen 0.2 < = 1.0 MG/DL Urine Leukocyte Esterase NEGATIVE NEGATIVE Urine RBC (Auto) NEGATIVE NEGATIVE Urine RBC NONE /HPF Urine WBC NONE /HPF Urine Squamous Epithelial Cells 2-5 /HPF Urine Crystals NONE /LPF Urine Bacteria NEGATIVE /HPF Urine Casts NONE /LPF Urine Mucus NEGATIVE /LPF Urine Culture Indicated NO Urine Opiates Screen NEGATIVE NEGATIVE Urine Oxycodone Screen NEGATIVE NEGATIVE Urine Methadone Screen NEGATIVE NEGATIVE Urine Propoxyphene Screen NEGATIVE NEGATIVE Urine Barbiturates Screen NEGATIVE NEGATIVE Ur Tricyclic Antidepressants Screen NEGATIVE NEGATIVE Urine Phencyclidine Screen NEGATIVE NEGATIVE Urine Amphetamines Screen NEGATIVE NEGATIVE Urine Methamphetamines Screen NEGATIVE NEGATIVE Urine Benzodiazepines Screen NEGATIVE NEGATIVE Urine Cocaine Screen NEGATIVE NEGATIVE Urine Cannabinoids Screen NEGATIVE NEGATIVE White Blood Count 8.5 4.3-11.0 10^3/uL Red Blood Count 4.67 3.80-5.11 10^6/uL Hemoglobin 13.0 11.5-16.0 g/dL Hematocrit 40 35-52 % Mean Corpuscular Volume 86 80-99 fL Mean Corpuscular Hemoglobin 28 25-34 pg Mean Corpuscular Hemoglobin Concent 33 32-36 g/dL Red Cell Distribution Width 13.1 10.0-14.5 % Platelet Count 199 130-400 10^3/uL Mean Platelet Volume 9.3 9.0-12.2 fL Immature Granulocyte % (Auto) 0 % Neutrophils (%) (Auto) 59 42-75 % Lymphocytes (%) (Auto) 34 12-44 % Monocytes (%) (Auto) 5 0-12 % Eosinophils (%) (Auto) 1 0-10 % Basophils (%) (Auto) 1 0-10 % Neutrophils # (Auto) 5.0 1.8-7.8 10^3/uL Lymphocytes # (Auto) 2.9 1.0-4.0 10^3/uL Monocytes # (Auto) 0.4 0.0-1.0 10^3/uL Eosinophils # (Auto) 0.1 0.0-0.3 10^3/uL Basophils # (Auto) 0.1 0.0-0.1 10^3/uL Immature Granulocyte # (Auto) 0.0 0.0-0.1 10^3/uL Sodium Level 143 135-145 MMOL/L Potassium Level 4.1 3.6-5.0 MMOL/L Chloride Level 107 98-107 MMOL/L Carbon Dioxide Level 25 21-32 MMOL/L Anion Gap 11 5-14 MMOL/L Blood Urea Nitrogen 8 7-18 MG/DL Creatinine 0.74 0.60-1.30 MG/DL Estimat Glomerular Filtration Rate > 60 BUN/Creatinine Ratio 11 Glucose Level 87 70-105 MG/DL Calcium Level 8.4 L 8.5-10.1 MG/DL Corrected Calcium 8.2 L 8.5-10.1 MG/DL Total Bilirubin 0.3 0.1-1.0 MG/DL Aspartate Amino Transf (AST/SGOT) 19 5-34 U/L Alanine Aminotransferase (ALT/SGPT) 14 0-55 U/L Alkaline Phosphatase 54 40-136 U/L Total Protein 7.2 6.4-8.2 GM/DL Albumin 4.3 3.2-4.5 GM/DL Amylase Level 52 25-125 U/L Lipase 87 H 8-78 U/L Serum Alcohol 187 H <10 MG/DL My Orders Orders - HLALE NOBLE DO Urine Bedside (09/02/20 21:50) Ua Culture If Indicated (09/02/20 21:50) Drug Screen Stat (Urine) (09/02/20 21:56) Ed Iv/Invasive Line Start (09/02/20 22:09) Ct Abd/Pelv W (Appendicitis) (09/02/20 22:09) Alcohol (09/02/20 22:09) Amylase (09/02/20 22:09) Cbc With Automated Diff (09/02/20 22:) Comprehensive Metabolic Panel (09/02/20 22:09) Lipase (09/02/20 22:09) Ketorolac Injection (Toradol Injection) (09/02/20 22:09) Iohexol Injection (Omnipaque 350 Mg/Ml 1 (09/02/20 23:00) Received Contrast (Hold Metformin- Contr (09/02/20 23:00) Sodium Chloride Flush (Catheter Flush Sy (09/02/20 23:00) Ns (Ivpb) (Sodium Chloride 0.9% Ivpb Bag (09/02/20 23:00) Pantoprazole Tablet (Protonix Tablet) (09/02/20 23:45) Ondansetron Injection (Zofran Injectio (09/02/20 23:45) Medications Given in ED Current Medications Medications Dose Ordered Sig/Abdi Route Start Time Stop Time Status Last Admin Dose Admin Iohexol 100 ml ONCE ONCE IV 09/02/20 23:00 09/02/20 23:01 DC 09/02/20 23:11 80 ML Sodium Chloride 10 ml NEEDED PRN IV 09/02/20 23:00 09/03/20 00:05 DC 09/02/20 23:11 10 ML Sodium Chloride 100 ml ONCE ONCE IV 09/02/20 23:00 09/02/20 23:01 DC 09/02/20 23:11 80 ML Vital Signs/I&O 09/02/20 09/03/20 21:49 00:05 Temp 36.0 36.0 Pulse 98 89 Resp 20 16 B/P (MAP) 145/91 (109) 138/89 (109) Pulse Ox 97 O2 Delivery Room Air Room Air Capillary Refill : Progress Note : Progress Note GIVEN TORADOL FOR PAIN PT WANTS SOMETHING FOR NAUSEA, ORDERED ZOFRAN AND PROTONIX THEN PT REFUSED BOTH AND THEN LEFT ER. Diagnostic Imaging Comments CT ABDOMEN/PELVIS--NO ACUTE PROCESS, PER [facility] VIA FAX AT 1905 Reviewed: Reviewed by Me Departure Impression Primary Impression: Lower abdominal pain Additional Impressions: Alcohol intoxication Dysuria Disposition: HOME, SELF-CARE Condition: Improved Departure-Patient Inst. Decision time for Depature: 23:38 Referrals: [facility] (PCP) Primary Care Physician TERRI BOATENG (Family) Primary Care Physician Patient Instructions: Abdominal Pain, Adult ED, Alcohol Abuse and Alcoholism (DC), Dysuria, Adult (DC) Add. Discharge Instructions: NO ALCOHOL CLEAR LIQUIDS--WATER, BROTH, JELLO, GATORADE BRATS DIET--BANANAS, RICE, APPLESAUCE, TOAST, SALTINES FOLLOW UP WITH YOUR DR IN 2-3 DAYS FOR FURTHER CARE, RETURN TO ER IF WORSE Scripts Phenazopyridine HCl (Pyridium) 200 Mg Tablet 1 TAB PO TID, #15 TAB Prov: HALLE NOBLE DO 09/03/20 Naproxen (Naproxen) 500 Mg Tablet.dr 500 MG PO BID, #20 TAB Prov: HALLE NOBLE DO 09/02/20 Pantoprazole Sodium (Protonix) 40 Mg Tablet. 40 MG PO DAILY, #15 TAB Prov: HALLE NOBLE DO 09/02/20 HALLE NOBLE DO September 02, 2020 22:01
[2020-09-02 22:05] LABS: BACTERIA,URINE NEGATIVE /HPF
[2020-09-02 22:13] LABS: AMPHETAMINE SCREEN, URINE NEGATIVE (NEGATIVE); BARBITURATE SCREEN URINE NEGATIVE (NEGATIVE); BENZODIAZEPINES SCREEN URINE NEGATIVE (NEGATIVE); CANNABINOID SCREEN, URINE NEGATIVE (NEGATIVE); COCAINE SCREEN URINE NEGATIVE (NEGATIVE); METHADONE STAT NEGATIVE (NEGATIVE); METHAMPHETAMINE SCREEN URINE S NEGATIVE (NEGATIVE); OPIATE SCREEN URINE NEGATIVE (NEGATIVE); OXYCODONE STAT NEGATIVE (NEGATIVE); PROPOXYPHENE STAT NEGATIVE (NEGATIVE); TRICYCLIC ANTIDEPRESSANTS SCRE NEGATIVE (NEGATIVE)
[2020-09-02] MEDS: KETOROLAC 30 MG/ML VIAL IVP STA (22:23)
[2020-09-02 22:27] LABS: BASOPHILS # (AUTO) 0.1 10^3/uL (0.0-0.1); BASOPHILS % (AUTO) 1 % (0-10); EOSINOPHILS # (AUTO) 0.1 10^3/uL (0.0-0.3); EOSINOPHILS % (AUTO) 1 % (0-10); HEMATOCRIT 40 % (35-52); LYMPHOCYTES # (AUTO) 2.9 10^3/uL (1.0-4.0); LYMPHOCYTES % (AUTO) 34 % (12-44); MEAN CORPUSCULAR HEMOGLOBIN 28 pg (25-34); MEAN CORPUSCULAR HGB CONC 33 g/dL (32-36); MEAN CORPUSCULAR VOLUME 86 fL (80-99); MEAN PLATELET VOLUME 9.3 fL (9.0-12.2); MONOCYTES # (AUTO) 0.4 10^3/uL (0.0-1.0); MONOCYTES % (AUTO) 5 % (0-12); NEUTROPHILS % (AUTO) 59 % (42-75); PLATELET COUNT 199 10^3/uL (130-400); WHITE BLOOD COUNT 8.5 10^3/uL (4.3-11.0)
[2020-09-02 22:35] LABS: ALBUMIN 4.3 GM/DL (3.2-4.5); CHLORIDE 107 MMOL/L (98-107); POTASSIUM 4.1 MMOL/L (3.6-5.0); SODIUM 143 MMOL/L (135-145)
[2020-09-02 22:36] LABS: AMYLASE 52 U/L (25-125); CALCIUM 8.4 MG/DL (8.5-10.1)
[2020-09-02 22:37] LABS: GLUCOSE 87 MG/DL (70-105); TOTAL PROTEIN 7.2 GM/DL (6.4-8.2)
[2020-09-02 22:38] LABS: CARBON DIOXIDE 25 MMOL/L (21-32)
[2020-09-02 22:39] LABS: BILIRUBIN,TOTAL 0.3 MG/DL (0.1-1.0)
[2020-09-02 22:41] LABS: ALKALINE PHOSPHATASE 54 U/L (40-136); CREATININE SERUM 0.74 MG/DL (0.60-1.30); GFR ESTIMATED > 60
[2020-09-02 22:42] LABS: BUN/CREATININE RATIO 11
[2020-09-02 22:44] LABS: ALANINE AMINOTRANSFERASE 14 U/L (0-55)
[2020-09-02 22:45] LABS: LIPASE 87 U/L (8-78)
[2020-09-02] MEDS ORDERED: HOLD METFORMIN - RECEIVED CONTRAST 20 ML VIAL IV SCH (23:00)
[2020-09-02] MEDS: CATHETER FLUSH 10 ML SYR IV PRN (23:11)
[2020-09-02] MEDS: NS 100 ML (IVPB) BAG IV ONE (23:11)
[2020-09-02] MEDS: IOHEXOL 350 MG/ML 100 ML (OMNIPAQUE 350) VIAL IV ONE (23:11)
[2020-09-02] MEDS ORDERED: NAPR500T8 PO (23:41)
[2020-09-02] MEDS ORDERED: PANT40TA2 PO (23:41)
[2020-09-03] MEDS: ONDANSETRON 4 MG/2 ML (SDV) Z0FRAN IVP ONE (00:04)
[2020-09-03] MEDS: PANTOPRAZOLE 40 MG (PROTONIX) TAB PO ONE (00:04)
[2020-09-03 00:05] VITALS: BP 138/89
[2020-09-03] MEDS ORDERED: PHEN-640 PO (05:48)
--- NOTE | 2020-09-03 08:22 | Diagnostic Imaging Report ---
PROCEDURE: CT abdomen and pelvis with contrast, rule out appendicitis. TECHNIQUE: Multiple contiguous axial images were obtained through the abdomen and pelvis after the administration of intravenous contrast. All CT scans use one or more of the following dose optimizing techniques: automated exposure control, MA and/or KvP adjustment based on patient size and exam type or iterative reconstruction. INDICATION: Right lower quadrant pain. COMPARISON: CT abdomen and pelvis with IV contrast 09/19/2018. FINDINGS: The lung bases are clear. Liver, gallbladder, pancreas, spleen, adrenals, kidneys, collecting systems and bladder are negative. No free intraperitoneal air or fluid. No lymphadenopathy. Hysterectomy. No evidence of bowel obstruction or inflammation. Osseous structures are intact. IMPRESSION: No acute CT findings in the abdomen or pelvis. No significant change from preliminary interpretation. Dictated by: Dictated on workstation # [id number]
== END 2020-09-03 00:05 | disposition home or self-care (01) ==
LOC: EDUNIT# 21:42 → ER 21:44
DX: R10.30 Lower abdominal pain, unspecified (principal); R30.0 Dysuria; R11.0 Nausea; F10.929 Alcohol use, unspecified with intoxication, unspecified; F41.9 Anxiety disorder, unspecified; Y90.6 Blood alcohol level of 120-199 mg/100 ml; Z90.710 Acquired absence of both cervix and uterus; Z79.899 Other long term (current) drug therapy
CPT/HCPCS: 74177; 80053; 80306; 81000; 82150; 83690; 84703; 85025; 99284; G0480; 36415; 80320

== ENCOUNTER 2021-03-17 22:29 | Emergency (ER) | payer SELFPAY ==
[~2021-03-17] VITALS: Ht 152 cm; Wt 64.0 kg
[~2021-03-17 22:29] MED LIST changes: +DICY20TA PO; -DICY20TA10 PO; +NAPR500T8 PO; +PANT40TA2 PO; +PHEN-640 PO
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
[2021-03-17 22:45] LABS: BASOPHILS # (AUTO) 0.1 10^3/uL (0.0-0.1); BASOPHILS % (AUTO) 0 % (0-10); EOSINOPHILS # (AUTO) 0.1 10^3/uL (0.0-0.3); EOSINOPHILS % (AUTO) 1 % (0-10); HEMATOCRIT 43 % (35-52); HEMOGLOBIN 14.1 g/dL (11.5-16.0); LYMPHOCYTES # (AUTO) 3.2 10^3/uL (1.0-4.0); LYMPHOCYTES % (AUTO) 29 % (12-44); MEAN CORPUSCULAR HEMOGLOBIN 28 pg (25-34); MEAN CORPUSCULAR HGB CONC 33 g/dL (32-36); MEAN CORPUSCULAR VOLUME 85 fL (80-99); MEAN PLATELET VOLUME 9.5 fL (9.0-12.2); MONOCYTES # (AUTO) 0.5 10^3/uL (0.0-1.0); MONOCYTES % (AUTO) 4 % (0-12); NEUTROPHILS # (AUTO) 7.3 10^3/uL (1.8-7.8); NEUTROPHILS % (AUTO) 65 % (42-75); PLATELET COUNT 248 10^3/uL (130-400); WHITE BLOOD COUNT 11.3 10^3/uL (4.3-11.0)
[2021-03-17 22:54] LABS: ALBUMIN 4.4 GM/DL (3.2-4.5); POTASSIUM 3.3 MMOL/L (3.6-5.0); PROTHROMBIN TIME PATIENT 13.6 SEC (12.2-14.7)
[2021-03-17 22:57] LABS: TOTAL PROTEIN 7.9 GM/DL (6.4-8.2)
[2021-03-17 22:59] LABS: BILIRUBIN,TOTAL 0.1 MG/DL (0.1-1.0)
[2021-03-17 23:01] LABS: CREATININE SERUM 0.77 MG/DL (0.60-1.30)
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
[2021-03-17 23:36] LABS: BILIRUBIN,URINE NEGATIVE (NEGATIVE); CLARITY,URINE CLEAR; COLOR,URINE YELLOW; GLUCOSE, URINE (UA) NEGATIVE (NEGATIVE); KETONES,URINE NEGATIVE (NEGATIVE); LEUKOCYTE ESTERASE ,URINE NEGATIVE (NEGATIVE); NITRITE,URINE NEGATIVE (NEGATIVE); PROTEIN,URINE NEGATIVE (NEGATIVE)
[2021-03-17 23:48] LABS: BACTERIA,URINE TRACE /HPF; SQUAMOUS EPITHELIAL CELL,UR 0-2 /HPF; WBC,URINE RARE /HPF
[2021-03-18] MEDS ORDERED: LACTATED RINGERS 1,000 ML IV STA (00:08)
[2021-03-18 01:55] VITALS: BP 104/66
== END 2021-03-18 02:00 | disposition home or self-care (01) ==
LOC: EDUNIT# 22:29 → ER 22:34
DX: F10.920 Alcohol use, unspecified with intoxication, uncomplicated (principal); F41.9 Anxiety disorder, unspecified; Z32.02 Encounter for pregnancy test, result negative; Z79.899 Other long term (current) drug therapy; V89.2XXA Person injured in unspecified motor-vehicle accident, traffic, initial encounter
CPT/HCPCS: 70450; 71045; 72125; 72170; 80053; 81000; 84703; 85025; 85610; 96360; 99284; G0480; 36415; 80320

== ENCOUNTER 2021-10-03 10:31 | Emergency (ER) | payer SELFPAY ==
[~2021-10-03] VITALS: Ht 152.4 cm; Wt 72.5 kg
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
[2021-10-03] MEDS ORDERED: IBUPROFEN 800 MG (MOTRIN) TAB PO ONE (11:15)
--- NOTE | 2021-10-03 11:24 | Diagnostic Imaging Report ---
INDICATION: Right hand pain and swelling. TIME OF EXAM: 11:11 AM. TECHNIQUE: Three views of the right hand were obtained. FINDINGS: The metacarpals are intact. The phalanges are intact. No fractures are seen. The carpus is unremarkable. IMPRESSION: No acute bony abnormality is detected. Dictated by: Dictated on workstation # [id number]
[2021-10-03] MEDS ORDERED: IBUP-1773 PO (11:37)
[2021-10-03 11:50] VITALS: BP 117/83
== END 2021-10-03 11:50 | disposition home or self-care (01) ==
LOC: EDUNIT# 10:31 → ER 10:32
DX: S60.221A Contusion of right hand, initial encounter (principal); W23.1XXA Caught, crushed, jammed, or pinched between stationary objects, initial encounter
CPT/HCPCS: 73130

== ENCOUNTER 2021-11-05 09:12 | Emergency (ER) | payer SELFPAY ==
[~2021-11-05] VITALS: Ht 152 cm; Wt 68.0 kg
[~2021-11-05 09:12] MED LIST changes: +IBUP-1773 PO
--- NOTE | 2021-11-05 11:07 | ED Lower Extremity ---
General Chief Complaint: Laceration Stated Complaint: R KNEE LAC Nursing Triage Note: PT PRESENTS TO ED VIA POV FROM HOME WITH COMPLAINTS OF R KNEE LAC AFTER FALLING ON CONCRETE AROUND 0830 TODAY. Source: patient Exam Limitations: no limitations (LUKASZ GRANT) History of Present Illness Date Seen by Provider: Nov 05, 2021 Time Seen by Provider: 11:05 Initial Comments Patient is a 31-year-old female presents ED with right knee pain after fall resulting in 2 lacerations. This occurred around 830 this morning. She states that she tripped and fell hitting the concrete. This resulted in 2 lacerations. Bleeding controlled direct pressure. She is able to ambulate but does have some pain and discomfort. Not up-to-date on her tetanus. Denies hitting her head, loss consciousness, chest pain, cough, shortness of breath, nausea, vomiting, diarrhea. (LUKASZ GRANT) Allergies and Home Medications Allergies Coded Allergies: No Known Drug Allergies (Unverified , 09/19/11) Patient Home Medication List Home Medication List Reviewed: Yes (LUKASZ GRANT) Alprazolam (Alprazolam) 0.5 Mg Tablet, 0.5 TAB PO TID PRN for ANXIETY, (Reported) Entered as Reported by: BONY PHILLIPS on 10/04/15 1617 Cephalexin (Cephalexin) 500 Mg Tablet, 500 MG PO QID Prescribed by: DARREN DE ANDA on 11/05/21 1147 Dicyclomine HCl (Dicyclomine HCl) 20 Mg Tablet, 20 MG PO AC Prescribed by: FERDINAND HOANG on 10/07/18 1848 Hydrocodone Bit/Acetaminophen (Lortab 5 Mg Tablet) 1 Tab Tab, 1 EACH PO Q4-6HR PRN for PAIN-MODERATE Prescribed by: CLAUDIA SILVEIRA on 09/14/18 211 Hydrocodone Bit/Acetaminophen (Lortab 5 Mg Tablet) 1 Tab Tab, 1 EACH PO Q4-6HR PRN for PAIN-MODERATE Prescribed by: CLAUDIA SILVEIRA on 09/19/18 182 Ibuprofen (Ibuprofen) 600 Mg Tablet, 600 MG PO Q6H Prescribed by: DARREN DE ANDA on 10/03/21 1137 Naproxen (Naproxen) 500 Mg Tablet.dr, 500 MG PO BID Prescribed by: HALLE NOBLE on 09/02/20 2341 Naproxen (Naproxen) 500 Mg Tablet, 500 MG PO Q12H Prescribed by: DARREN DE ANDA on 11/05/21 1223 Ondansetron (Ondansetron Odt) 4 Mg Tab.rapdis, 4 MG PO Q4H PRN for NAUSEA/VOMITING-1ST LINE Prescribed by: CLAUDIA SILVEIRA on 09/19/18 1825 Pantoprazole Sodium (Protonix) 40 Mg Tablet.dr, 40 MG PO DAILY Prescribed by: HALLE NOBLE on 09/02/20 2341 Phenazopyridine HCl (Pyridium) 200 Mg Tablet, 1 TAB PO TID Prescribed by: HALLE NOBLE on 09/03/20 0548 Review of Systems Constitutional: No chills, No diaphoresis EENTM: No blurred vision, No double vision Respiratory: No cough, No dyspnea on exertion Cardiovascular: No chest pain Gastrointestinal: No abdominal pain, No diarrhea, No nausea, No vomiting Genitourinary: No decreased output, No discharge Musculoskeletal: No back pain; joint pain, joint swelling Skin: change in color (LUKASZ GRANT) All Other Systems Reviewed Negative Unless Noted: Yes (LUKASZ GRANT) Past Vuoxhxz-Gpeeni-Uhzpsi Hx Patient Social History Tobacco Use?: No Substance use?: No Alcohol Frequency: Once in a while Pt feels they are or have been: No (LUKASZ GRANT) Immunizations Up To Date Tetanus Booster (TDap): Less than 5yrs First/Initial COVID19 Vaccinat: YES Second COVID19 Vaccination Mario: YES COVID19 Vaccine [employer] 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 (LUKASZ GRANT) Seasonal Allergies Seasonal Allergies: Yes (LUKASZ GRANT) Past Medical History Surgery/Hospitalization HX: C-SECT, DENTAL, TUBAL, HYSTERECTOMY, ADHD/ADD, ANXIETY, GERD Surgeries: Yes (WISDOM TEETH, TEAR DUCT, c/s x2;HYST/USO) Section, Hysterectomy, Oophorectomy, Tubal Ligation Respiratory: No Cardiac: No Neurological: No 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 Sexually Transmitted Disease: No Genitourinary: No Gastrointestinal: No Musculoskeletal: No Endocrine: No HEENT: No Cancer: No Psychosocial: Yes ADD/ADHD, Anxiety Integumentary: No Blood Disorders: No (LUKASZ GRANT) Family Medical History Arthritis 19 MOTHER Cardiovascular disease 19 FATHER 19 MOTHER Diabetes mellitus 19 FATHER 19 MOTHER Hypertension 19 FATHER 19 MOTHER Myocardial infarction 19 FATHER 19 MOTHER Thyroid disease 19 MOTHER G8 SISTER No Pertinent Family Hx (LUKASZ GRANT) Physical Exam Vital Signs Vital Signs - First Documented 11/05/21 09:35 Temp 36.5 Pulse 94 Resp 14 B/P (MAP) 140/99 (113) Pulse Ox 97 (ARTURO CHAVEZ MD) Vital Signs Capillary Refill : Less Than 3 Seconds (LUKASZ GRANT) Height, Weight, BMI Height: 5'0" Weight: 145lbs. 8.0oz. [id number]; 29.00 BMI Method:Stated General Appearance: WD/WN, no apparent distress HEENT: PERRL/EOMI, normal ENT inspection, TMs normal, pharynx normal Neck: non-tender, full range of motion, supple, normal inspection Cardiovascular: regular rate, rhythm, no edema, no gallop, no JVD Respiratory: chest non-tender, lungs clear, normal breath sounds, no respiratory distress, no accessory muscle use Gastrointestinal: normal bowel sounds, non tender, soft, no organomegaly Back: normal inspection, no CVA tenderness Knees: right knee pain, right knee soft tissue tenderness, right knee swelling, right knee other (Active range of motion intact. 90 degree flexion with full extension. No laxity with valgus or varus stress. Anterior and posterior drawer test negative) Skin: other (Two 2 similar lacerations to the right knee. Swelling.) (LUKASZ GRANT) Procedures/Interventions Wound Location: Lower Extremities Other Wound Location right knee Wound Length (cm): 2 Wound's Depth, Shape: superficial, sub Q Wound Explored: clean Irrigated w/ Saline (ccs): 300 Betadine Prep?: Yes Anesthesia: 1% Lidocaine Volume Anesthetic (ccs): 5 Suture: Ethlion Suture Size: 4-0 Number of Sutures: 5 Layer Closure?: 1 2 cm laceration to the right knee. 5 Ethilon 4-0 sutures were placed. Irrigated with 200 mL. Iodine prep. Anesthetized with 5 mL lidocaine 1%. No foreign body. (LUKASZ GRANT) Progress/Results/Core Measures Results/Orders Medications Given in ED Current Medications Medications Dose Ordered Sig/Abdi Route Start Time Stop Time Status Last Admin Dose Admin Diphtheria/ Tetanus/Acell Pertussis 0.5 ml ONCE ONCE IM 11/05/21 11:15 11/05/21 11:16 DC 11/05/21 11:18 0.5 ML Lidocaine HCl 20 ml ONCE ONCE INJ 11/05/21 11:30 11/05/21 11:31 DC 11/05/21 11:21 5 ML (ARTURO CHAVEZ MD) Vital Signs/I&O 11/05/21 11/05/21 09:35 12:32 Temp 36.5 Pulse 94 94 Resp 14 16 B/P (MAP) 140/99 (113) 140/99 Pulse Ox 97 97 (ARTURO CHAVEZ MD) Blood Pressure Mean: 113 Departure Communication (PCP) Patient with 2 2 cm laceration to the right anterior knee. X-ray was negative for fracture. 10 Ethilon sore sutures were placed 5 sutures placed to each lace ration. Remove in 12 to 14 days. Discussed Neosporin. Landed on rocks excessive irrigation here. Due to potential contamination secondary to rocks and dirt patient will be discharged with Keflex prophylactically. Neosporin topically. Avoid running or excessive flexing of the right knee to prevent rupture of the sutures. Provided work note. Ice and elevate. If any worsening symptoms return back to ED for further evaluation. Patient was given a tetanus shot (LUKASZ GRANT) Impression Primary Impression: Laceration Disposition: 01 HOME, SELF-CARE Condition: Stable Departure-Patient Inst. Decision time for Depature: 11:46 (LUKASZ GRANT) Referrals: [facility] (PCP/Family) Primary Care Physician Patient Instructions: Laceration Repair With Stitches ED Add. Discharge Instructions: Remove sutures in 12 to 14 days. Recommend keeping the leg straight to prevent breaking of the sutures. Neosporin topical twice a day with daily wound changes. Anti-inflammatories for pain. All discharge instructions reviewed with patient and/or family. Voiced understanding. Scripts Naproxen (Naproxen) 500 Mg Tablet 500 MG PO Q12H for 10 Days, #20 TAB Prov: LUKASZ GRANT 11/05/21 Cephalexin (Cephalexin) 500 Mg Tablet 500 MG PO QID for 7 Days, #28 TAB Prov: LUKASZ GRANT 11/05/21 Work/School Note: Work Release Form Date Seen in the Emergency Department: Nov 05, 2021 Return to Work: Nov 08, 2021 ATTENDING PHYSICIAN NOTE: I was physically present as attending physician in the emergency department during the care of this patient, but I was not directly involved in the decision making or delivery of care for this patient. (ARTURO CHAVEZ MD) LUKASZ GRANT Nov 05, 2021 11:07 ARTURO CHAVEZ MD Nov 05, 2021 13:25
[2021-11-05] MEDS ORDERED: TETANUS,DIPTH,PERTUSS P/F (BOOSTRIX) 0.5 ML VIAL IM ONE (11:15)
[2021-11-05] MEDS ORDERED: LIDOCAINE 1% INJ 20 ML VIAL INJ ONE (11:30)
[2021-11-05] MEDS ORDERED: CEPH500T PO (11:47)
--- NOTE | 2021-11-05 12:18 | Diagnostic Imaging Report ---
CLINICAL INDICATION: Patient with right knee laceration after falling on concrete around 0830 hours. EXAM: X-ray of the right knee, 3 views. COMPARISON: None. FINDINGS: There is no acute fracture or dislocation. There is no knee effusion. There is no significant bone or joint abnormality. There is soft tissue swelling involving the prepatellar region. There is no radiodense foreign object or soft tissue air. IMPRESSION: 1: There is soft tissue swelling in the prepatellar region, likely from recent trauma. There is no soft tissue air or radiodense foreign object. 2: There is no acute fracture or dislocation. Dictated by: Dictated on workstation # [id number]
[2021-11-05] MEDS ORDERED: NAPR-915 PO (12:23)
[2021-11-05 12:32] VITALS: BP 140/99
== END 2021-11-05 12:31 | disposition home or self-care (01) ==
LOC: EDUNIT# 09:12 → ER 09:14
DX: S81.011A Laceration without foreign body, right knee, initial encounter (principal); W01.198A Fall on same level from slipping, tripping and stumbling with subsequent striking against other object, initial encounter
CPT/HCPCS: 12002; 73562; 90715